=== PATIENT | female | born 1930 | race Caucasian/White ===

== ENCOUNTER 2018-06-08 12:53 | Inpatient (IN) ==
--- NOTE | 2018-06-08 13:41 | XR ---
EXAM DATE: 06/08/2018 1:33 PM EST AGE/SEX: 88 years / Female INDICATIONS: Short of breath, palpitations CLINICAL DATA: This is the patient's initial encounter. Patient reports that signs and symptoms have been present for 3 days and indicates a pain score of 0/10. MEDICAL/SURGICAL HISTORY: None. None. COMPARISON: No prior exams available for comparison. FINDINGS: The heart size is normal. There is mild prominence of interstitium at the bases. Focal alveolar conso lidation or atelectasis is not seen. No effusions are seen. CONCLUSION: Prominence in interstitium at the bases which could be secondary to some underlying interstitial dise ase. Electronically signed by: Luis Fernando Huffman MD Board Certified Radiologist 06/08/2018 1:40 PM EST
[2018-06-08 13:42] LABS: Baso # (Auto) 0.2 th/mm3 (0.0-0.2); Baso % (Auto) 2.6 % (0.0-2.0); Eos # (Auto) 0.1 th/mm3 (0.0-0.4); Eos % (Auto) 1.5 % (0.0-4.0); Hematocrit 45.8 % (35.0-46.0); Hemoglobin 14.7 gm/dL (11.6-15.3); Lymph # (Auto) 2.2 th/mm3 (1.0-4.8); Lymph % (Auto) 28.5 % (9.0-44.0); Mean Corpuscular Hemoglobin 31.4 pg (27.0-34.0); Mean Corpuscular Volume 98.2 fL (80.0-100.0); Mono # (Auto) 0.7 th/mm3 (0.0-0.9); Mono % (Auto) 9.5 % (0.0-8.0); Neut # (Auto) 4.4 th/mm3 (1.8-7.7); Neut % (Auto) 57.9 % (16.0-70.0); Platelet Count 287 th/mm3 (150-450); Red Blood Count 4.67 mil/mm3 (4.00-5.30); Red Cell Distribution Width 14.3 % (11.6-17.2); White Blood Count 7.6 th/mm3 (4.0-11.0)
--- NOTE | 2018-06-08 13:51 | ED ---
HPI General Chief complaint: Arrhythmia / Palpitations Stated complaint: Heart palpatations feeling SOB x3days Time Seen by Provider: 06/08/18 13:04 Source: patient and family Mode of arrival: ambulatory Limitations: no limitations History of Present Illness HPI narrative: Patient is an 88 year old female who comes in complaining of palpitations and chest pain. She says this has been going on for two days and she notices it mostly at night. Her daughter thinks she has been experiencing these symptoms for a longer period of time. She has also noticed that her mother has been short of breath on exertion, however, the patient denies this. Currently, she says she is asymptomatic. However, last night she was experiencing more palpitations and discomfort in the left side of her chest and into her neck. She denies any leg swelling or pain. She denies any recent travel. She says she has never had symptoms like this before. Severity is mild to moderate. Related Data Home Medications Medication Instructions Recorded Confirmed alendronate 70 mg PO QWEEK 06/08/18 06/08/18 anastrozole 1 mg PO DAILY 06/08/18 06/08/18 atorvastatin 40 mg PO DAILY 06/08/18 06/08/18 citalopram 20 mg PO DAILY 06/08/18 06/08/18 omeprazole 20 mg PO DAILY 06/08/18 06/08/18 timolol maleate 1 drp OPHTHALMIC (EYE) BID 06/08/18 06/08/18 tobramycin-dexamethasone 0.5 inch OPHTHALMIC (EYE) Q8H 06/08/18 06/08/18 Allergies Allergy/AdvReac Type Severity Reaction Status Date / Time ketoprofen Allergy Severe Intestinal Unverified 01/29/17 17:44 Bleeding naproxen Allergy Severe Intestinal Unverified 01/29/17 17:44 Bleeding ezetimibe Allergy Unknown unknown Unverified 06/08/18 13:02 pravastatin Allergy Unknown unknown Unverified 06/08/18 13:02 Review of Systems ROS: all other systems reviewed are negative Constitutional Denies chills and Denies fever(s) ENT Denies dizziness Cardiovascular Reports chest pain, Reports palpitations and Reports dyspnea on exertion Respiratory Denies cough Gastrointestinal Denies nausea and Denies vomiting Musculoskeletal Denies myalgias and Denies arthralgias Integumentary/Breasts Denies sores and Denies wounds Neurologic Denies focal weakness and Denies numbness PMFSH Medical History Medical History GERD (gastroesophageal reflux disease) (Acute) High cholesterol (Chronic) Glaucoma (Acute) History of breast cancer (Acute) History of radiation therapy (Acute) Surgical History Surgical History History of appendectomy (Acute) History of knee replacement (Acute) History of lumpectomy of left breast (Acute) History of tonsillectomy (Acute) Family History Family History Other Family history of acute myocardial infarction Social History Social History Substance History: No History of Abuse Second Hand Smoke Exposure: No Smoking Status: Never smoker How Often Do You Have a Drink Containing Alcohol: Never Recent Travel in [email or web address] within the Last 8 Weeks: No Recent Out of Country Travel within the Last 8 Weeks: No Immunization History Tetanus Immunization: Unsure Exam Narrative Exam Narrative: GENERAL: Awake and alert, in no acute distress. SKIN: Focused skin assessment warm/dry. HEAD: Atraumatic. Normocephalic. EYES: Pupils equal and round. No scleral icterus. No injection or drainage. ENT: No nasal bleeding or discharge. Mucous membranes pink and moist. NECK: Trachea midline. No JVD. CARDIOVASCULAR: Regular rate and rhythm. No murmur appreciated. RESPIRATORY: No accessory muscle use. Clear to auscultation. Breath sounds equal bilaterally. GASTROINTESTINAL: Abdomen soft, non-tender, nondistended. MUSCULOSKELETAL: No obvious deformities. No clubbing. No cyanosis. No edema. NEUROLOGICAL: Awake and alert. No obvious cranial nerve deficits. Motor grossly within normal limits. Normal speech. PSYCHIATRIC: Appropriate mood and affect; insight and judgment normal. Course Initial Documented Vital Signs Temperature 98.1 F 06/08/18 12:58 Pulse Rate 78 06/08/18 12:58 Respiratory Rate 16 06/08/18 12:58 Blood Pressure 165/77 H 06/08/18 12:58 Pulse Oximetry 98 06/08/18 12:58 Last Documented Vital Signs Temperature 98.1 F 06/08/18 12:58 Pulse Rate 79 06/08/18 17:25 Respiratory Rate 16 06/08/18 17:25 Blood Pressure 164/70 H 06/08/18 17:25 Pulse Oximetry 98 06/08/18 17:25 Medical Decision Making MDM Narrative Medical decision making narrative: Patient is an 88-year-old female who comes in chest discomfort and palpitations. Exam shows no acute abnormalities. IV established, labs sent. Labs concerning for an elevated troponin of 0.21, BNP is elevated. Patient given aspirin, started on heparin. CTA of the chest performed shows no evidence of PE. However there is vascular congestion and cardiomegaly. Patient given a dose of Lasix. Given nitro for her blood pressure. I spoke with Dr. Chavez of cardiology who would like the patient transferred to the main hospital. Agrees with the plan of heparin at this time. Patient admitted for further management. Medical Screen Exam Complete: Yes Emergency Medical Condition: Yes Differential Diagnosis Differential Diagnosis: PE versus NSTEMI versus STEMI versus CHF versus pneumonia versus electrolyte abnormality Medical Records Medical records reviewed: Yes I reviewed the patient's medical records. Lab Data Lab results reviewed: Yes I reviewed the patient's lab results. Result diagrams: 06/08/18 13:34 06/08/18 13:34 Lab Results 06/08/18 06/08/18 06/08/18 Range/Units 13:34 13:34 13:34 CBC w Diff Auto diff final WBC 7.6 (4.0-11.0) th/mm3 RBC 4.67 (4.00-5.30) mil/mm3 Hgb 14.7 (11.6-15.3) gm/dL Hct 45.8 (35.0-46.0) % MCV 98.2 (80.0-100.0) fL MCH 31.4 (27.0-34.0) pg MCHC 32.0 (32.0-36.0) % RDW 14.3 (11.6-17.2) % Plt Count 287 (150-450) th/mm3 MPV 9.0 (7.0-11.0) fL Neut % (Auto) 57.9 (16.0-70.0) % Lymph % (Auto) 28.5 (9.0-44.0) % [place] % (Auto) 9.5 H (0.0-8.0) % Eos % (Auto) 1.5 (0.0-4.0) % Baso % (Auto) 2.6 H (0.0-2.0) % Neut # (Auto) 4.4 (1.8-7.7) th/mm3 Lymph # (Auto) 2.2 (1.0-4.8) th/mm3 [place] # (Auto) 0.7 (0.0-0.9) th/mm3 Eos # (Auto) 0.1 (0.0-0.4) th/mm3 Baso # (Auto) 0.2 (0.0-0.2) th/mm3 WBC Differential . Differential Comment . PT 10.6 (9.8-11.6) sec INR 1.0 Ratio APTT 25.7 (23.4-31.7) sec Sodium 141 (136-145) meq/L Potassium 3.8 (3.5-5.1) meq/L Chloride 107 (98-107) meq/L Carbon Dioxide 26.5 (21.0-32.0) meq/L Anion Gap 8 (5-15) meq/L BUN 23 H (7-18) mg/dL Creatinine 0.72 (0.50-1.00) mg/dL Estimated GFR 77 L (>89) mL/min Random Glucose 100 (74-106) mg/dL Calcium 8.7 (8.5-10.1) mg/dL Magnesium (1.5-2.5) mg/dL Total Bilirubin 0.4 (0.2-1.0) mg/dL AST 23 (15-37) U/L ALT 23 (10-53) U/L Alkaline Phosphatase 83 (45-117) U/L Total Creatine Kinase 46 (26-192) U/L Troponin I 0.21 H (0.02-0.05) ng/mL B-Natriuretic Peptide (0-100) pg/mL Total Protein 7.2 (6.4-8.2) g/dL Albumin 3.3 L (3.4-5.0) g/dL TSH 0.991 (0.358-3.740) uIU/mL 06/08/18 06/08/18 Range/Units 13:34 16:32 CBC w Diff WBC (4.0-11.0) th/mm3 RBC (4.00-5.30) mil/mm3 Hgb (11.6-15.3) gm/dL Hct (35.0-46.0) % MCV (80.0-100.0) fL MCH (27.0-34.0) pg MCHC (32.0-36.0) % RDW (11.6-17.2) % Plt Count (150-450) th/mm3 MPV (7.0-11.0) fL Neut % (Auto) (16.0-70.0) % Lymph % (Auto) (9.0-44.0) % [place] % (Auto) (0.0-8.0) % Eos % (Auto) (0.0-4.0) % Baso % (Auto) (0.0-2.0) % Neut # (Auto) (1.8-7.7) th/mm3 Lymph # (Auto) (1.0-4.8) th/mm3 [place] # (Auto) (0.0-0.9) th/mm3 Eos # (Auto) (0.0-0.4) th/mm3 Baso # (Auto) (0.0-0.2) th/mm3 WBC Differential Differential Comment PT (9.8-11.6) sec INR Ratio APTT (23.4-31.7) sec Sodium (136-145) meq/L Potassium (3.5-5.1) meq/L Chloride (98-107) meq/L Carbon Dioxide (21.0-32.0) meq/L Anion Gap (5-15) meq/L BUN (7-18) mg/dL Creatinine (0.50-1.00) mg/dL Estimated GFR (>89) mL/min Random Glucose (74-106) mg/dL Calcium (8.5-10.1) mg/dL Magnesium 2.0 (1.5-2.5) mg/dL Total Bilirubin (0.2-1.0) mg/dL AST (15-37) U/L ALT (10-53) U/L Alkaline Phosphatase (45-117) U/L Total Creatine Kinase 44 (26-192) U/L Troponin I 0.27 H (0.02-0.05) ng/mL B-Natriuretic Peptide 518 H (0-100) pg/mL Total Protein (6.4-8.2) g/dL Albumin (3.4-5.0) g/dL TSH (0.358-3.740) uIU/mL Imaging Data Radiologist's impression: Chest CTA 06/08/18 13:12 CONCLUSION: 1. This study is negative for pulmonary embolism. 2. Scattered groundglass infiltrates are noted bilaterally consistent with atelectasis, mild infiltrates and/or mild pulmonary vascular congestion. Clinical correlation is recommended. 3. Cardiomegaly. Chest X-Ray 06/08/18 13:12 CONCLUSION: Prominence in interstitium at the bases which could be secondary to some underlying interstitial disease. ECG Data EKG Prior to Arrival: No Attestation: I personally reviewed and interpreted this ECG as follows: Interpretation: ECG shows NSR at a rate of 73, frequent PVCs, no ST elevation or depression Discharge Plan Discharge Disposition Patient Disposition: ED Admit(ED Internal Use Only) Discharge Condition Condition: Stable Discharge Order Discharge Orders: ED Use Only Admit Order (Routine); Ordered 06/08/18 Ordered By: Maria Ines Muñoz Discharge Details Diagnosis: Non-ST elevation SD (NSTEMI), CHF (congestive heart failure) Physicians Team ED Provider: Maria Ines Muñoz Primary Care Provider: Paco Corrales Attending Provider: Clyde Samuels Other Providers: Lupillo Gupta Status ED Status: Admitted Patient
[2018-06-08 14:00] LABS: Chloride 107 meq/L (98-107); Potassium 3.8 meq/L (3.5-5.1); Sodium 141 meq/L (136-145)
[2018-06-08 14:03] LABS: Albumin 3.3 g/dL (3.4-5.0); Anion Gap 8 meq/L (5-15); Calcium 8.7 mg/dL (8.5-10.1); Carbon Dioxide 26.5 meq/L (21.0-32.0); Glucose,Random 100 mg/dL (74-106)
[2018-06-08 14:04] LABS: Blood Urea Nitrogen 23 mg/dL (7-18)
[2018-06-08 14:05] LABS: Activated Partial Thrombo Time 25.7 sec (23.4-31.7); Prothrombin Time 10.6 sec (9.8-11.6)
[2018-06-08 14:07] LABS: Alanine Aminotransferase 23 U/L (10-53); Aspartate Aminotransferase 23 U/L (15-37); Glomerular Filtration Rate 77 mL/min (>89)
[2018-06-08 14:08] LABS: Total Protein 7.2 g/dL (6.4-8.2)
[2018-06-08 14:09] LABS: Alkaline Phosphatase 83 U/L (45-117)
[2018-06-08 14:12] LABS: Troponin I 0.21 ng/mL (0.02-0.05)
[2018-06-08 14:17] LABS: Thyroid Stimulating Hormone 0.991 uIU/mL (0.358-3.740)
[2018-06-08 14:41] LABS: Creatine Kinase 46 U/L (26-192)
--- NOTE | 2018-06-08 15:10 | CT ---
EXAM DATE: 06/08/2018 3:03 PM EST AGE/SEX: 88 years / Female INDICATIONS: Short of breath and heart palpitations. CLINICAL DATA: This is the patient's initial encounter. Patient reports that signs and symptoms have been present for 3 days and indicates a pain score of 0/10. MEDICAL/SURGICAL HISTORY: Gastroesophageal reflux disease. Hypercholesterolemia. Carcinoma, breas t. Appendectomy. Tonsillectomy. Left breast lumpectomy. Knee surgery. RADIATION DOSE: 13.27 CTDI (mGy) COMPARISON: No prior exams available for comparison. TECHNIQUE: Volumetric scanning was performed using a multi-row detector CT scanner during bolus infu suze of 65 ml Omnipaque 350 (iohexol) nonionic water-soluble contrast as a single exam dose. The fady a was post processed with a variety of visualization algorithms including full volume maximum intensi ty projection and sliding thin slab reformation. Using automated exposure control and adjustment of t he mA and/or kV according to patient size, radiation dose was kept as low as reasonably achievable to obtain optimal diagnostic quality images. DICOM format image data is available electronically for r eview and comparison. FINDINGS: Pulmonary Arteries: No filling defects are seen in the pulmonary arteries out to the subsegmental ve ssels. The left and right pulmonary arteries are normal in diameter. Lung: Scattered groundglass infiltrates are noted bilaterally consistent with atelectasis, mild infi ltrates and/or mild pulmonary vascular congestion. Clinical correlation is recommended. Effusion: None. Mediastinum: No evidence of mediastinal or hilar adenopathy. The heart is enlarged. Other: The axilla is unremarkable. CONCLUSION: 1. This study is negative for pulmonary embolism. 2. Scattered groundglass infiltrates are noted bilaterally consistent with atelectasis, mild infiltr ates and/or mild pulmonary vascular congestion. Clinical correlation is recommended. 3. Cardiomegaly. Electronically signed by: Kurt Vegas MD Board Certified Radiologist 06/08/2018 3:09 PM EST
[2018-06-08] MEDS ORDERED: Heparin 10,000 UNITS/10 ML Vial (for IV use) IV.PUSH STA (15:13)
[2018-06-08] MEDS ORDERED: Heparin Drip 25,000 UNIT/250 ML BAG IV.CONT PRN (15:13)
[2018-06-08] MEDS ORDERED: Acetaminophen 500 MG Tablet PO PRN (15:46)
[2018-06-08] MEDS ORDERED: Morphine Inj 4 MG/ML Vial IV.PUSH PRN (15:46)
[2018-06-08] MEDS: Aspirin 325 MG Tablet PO SCH (16:25)
--- NOTE | 2018-06-08 16:39 | P.HP ---
History of Present Illness Service: [facility] Adult med Primary Care Physician: Paco Corrales MD Chief Complaint: chest pressure, palpitations, fatigue History of Present Illness: Patient is an 88 year old female with hyperlipidemia and GERD as well as history of breast cancer who comes in complaining of palpitations and chest pain. She says this has been going on for two to 3 days and she notices it mostly at night. Her daughter thinks she has been experiencing these symptoms for a longer period of time. She has also noticed that her mother has been short of breath on exertion, however, the patient denies this and reports that the reason she cannot walk as far is because of knee surgery which she had at least 5 years ago. Currently, she says she is asymptomatic. However, last night she was experiencing more palpitations and discomfort in the left side of her chest and into her neck which lasted for several hours. She also had similar problems the night before. Daughter reports they have been trying to get her in to the [facility] but patient has been refusing until today. 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 She denies any leg swelling or pain. She denies any recent travel. She says she has never had symptoms like this before. Severity is mild to moderate. No fevers or chills. No hemoptysis. No productive cough. SH No tobacco, no alcohol for over 10 years Retired cardiac intensive care nurse Lives with her son, has a daughter in the area as well. - Diagnosis (1) Troponin I above reference range (2) GERD (gastroesophageal reflux disease) (3) High cholesterol Inpatient Certification: I certify that the inpatient services were ordered in accordance with Medicare regulations governing the order. This includes certification that hospital inpatient services are reasonable and necessary and in the case of services not specified as inpatient-only under 42 CFR 419.22(n), that they are appropriately provided as inpatient services in accordance to with the 2-midnight benchmark under 43 CFR 412.3(e) Estimated Total Length of Stay (Days): 3 Plans for Post Hospital Care: Not yet determined Review of Systems Constitutional: Reports fatigue, Denies anorexia, Denies body ache(s), Denies chills, Denies daytime sleepiness, Denies excessive sweating, Denies fever(s), Denies headache(s), Denies increased appetite, Denies lack of energy, Denies malaise, Denies night sweats, Denies weakness, Denies weight gain, Denies weight loss, Denies other Eyes: Denies blind spots, Denies blurry vision, Denies bulging eyes, Denies change in vision, Denies double vision, Denies discharge, Denies dry eyes, Denies floaters, Denies irritation, Denies itchy eyes, Denies loss of vision, Denies pain, Denies requires corrective lenses, Denies sensitivity to light, Denies other Ears, Nose, Mouth, and Throat: Reports abnormal hearing, Denies bleeding gums, Denies bad breath, Denies change in voice, Denies dental pain, Denies difficulty swallowing, Denies dizziness, Denies dry mouth, Denies ear discharge , Denies ear pain, Denies facial pain, Denies headache(s), Denies hearing loss, Denies hoarseness, Denies lip swelling, Denies nosebleed, Denies mouth lesions, Denies mouth pain, Denies nasal congestion, Denies nasal discharge, Denies nasal obstruction, Denies nasal trauma, Denies neck lump, Denies neck pain, Denies nose pain, Denies pain with swallowing, Denies poor balance, Denies post nasal drip, Denies ringing in the ears, Denies sinus pain, Denies sinus pressure , Denies sore throat, Denies throat swelling, Denies tongue swelling, Denies other Cardiovascular: Reports chest pain, Reports chest pain at rest, Reports chest pain with activity, Reports fast heart rate, Reports irregular heart rhythm, Reports shortness of breath with activity, Denies excessive sweating, Denies fainting, Denies foot swelling, Denies generalized swelling, Denies leg pain with activity, Denies leg sores, Denies leg swelling, Denies lightheadedness, Denies radiating jaw, neck or arm pain, Denies rapid, pounding, or irregular heartbeat, Denies shortness of breath, Denies shortness of breath when lying down, Denies shortness of breath causing sudden awakening, Denies slow heart rate, Denies other Respiratory: Reports shortness of breath with activity, Denies change in phlegm color, Denies chest congestion, Denies cough, Denies coughing up blood, Denies excessive phlegm production, Denies pain on inspiration, Denies pain with cough , Denies shortness of breath, Denies snoring, Denies stridor, Denies wheezing, Denies other Gastrointestinal: Denies abdominal pain, Denies belching, Denies black, tarry stools, Denies bloating, Denies bright, red blood in stools, Denies change in bowel habits, Denies constant urge to pass stool, Denies change in stools, Denies coffee ground vomit, Denies constipation, Denies cramping, Denies difficulty swallowing, Denies excessive passing of gas, Denies feeling full early, Denies heartburn, Denies incontinent of stools, Denies loose stools, Denies nausea, Denies pain with swallowing, Denies vomiting, Denies vomiting blood, Denies other Musculoskeletal: Reports joint pain Neurologic: Reports abnormal hearing, Denies abnormal movements, Denies abnormal speech, Denies abnormal walking, Denies behavioral changes, Denies burning sensations, Denies confusion, Denies dizziness, Denies fainting, Denies frequent falls, Denies headache(s), Denies lack of coordination, Denies localized weakness, Denies loss of vision, Denies memory loss, Denies numbness, Denies other visual disturbances, Denies radiating pain, Denies restless legs, Denies convulsions, Denies seizure-like activity, Denies sensory deficit, Denies tingling, Denies tingling/numbness/burning sensations, Denies tremor(s), Denies unsteadiness, Denies weakness, Denies other Psychiatric: Reports anxiety PMFSH - History History Provided By: Patient, Family Member - Medical History Medical History: Medical History (Last Updated 06/08/18 @ 16:34 by Marino Oates MD, PhD) GERD (gastroesophageal reflux disease) (Acute) High cholesterol (Acute) Glaucoma History of breast cancer History of radiation therapy - Surgical History Surgical History: Surgical History (Last Updated 06/08/18 @ 16:31 by Marino Oates MD, PhD) History of appendectomy History of knee replacement History of lumpectomy of left breast History of tonsillectomy - Family History Family History: Family History (Last Updated 06/08/18 @ 16:32 by Marino Oates MD, PhD) Other Family history of acute myocardial infarction - Social History I have reviewed the patient's Social History: Yes - Tobacco History Second Hand Smoke Exposure: No Tobacco Use In Past 30 Days: No Smoking Status: Never smoker - Alcohol History How Often Do You Have a Drink Containing Alcohol: Never - Substance Use History Substance History: No History of Abuse - Travel History Recent Travel in the [place] Within the Last 8 Weeks: No Recent Travel Out of the Country Within the Last 8 Weeks: No - Immunization History Tetanus Immunization: Unsure Medications and Allergies Active Medications: Active Medications Acetaminophen (Tylenol) 500 mg PO Q4H PRN PRN Reason: HEADACHE Anastrozole (Arimidex) 1 mg PO DAILY [facility] Aspirin (Aspirin) 325 mg PO DAILY [facility] Last Admin: 06/08/18 16:25 Dose: Not Given Atorvastatin Calcium (Lipitor) 40 mg PO DAILY [facility] Citalopram Hydrobromide (Celexa) 20 mg PO DAILY [facility] Heparin Sodium/Dextrose (Heparin/D5w 25,000 U/250 Ml) 25,000 unit in 250 mls @ 0 mls/hr IV.CONT TITRATE PRN; Protocol PRN Reason: Per Protocol Last Admin: 06/08/18 15:49 Dose: 800 units/hr, 8 mls/hr Morphine Sulfate (Morphine Inj) 2 mg IV.PUSH Q5M PRN PRN Reason: PAIN SCALE 6 TO 10 Nitroglycerin (Nitrostat Sl) 0.4 mg SL Q5M PRN PRN Reason: SYS BP GREATER THAN 170 MMHG Last Admin: 06/08/18 15:56 Dose: 0.4 mg Nitroglycerin (Nitrostat Sl) 0.4 mg SL Q5M PRN PRN Reason: ANGINA Pantoprazole Sodium (Protonix) 20 mg PO DAILY [facility] Sodium Chloride (Ns Flush) 2 ml IV.FLUSH UNSCH PRN PRN Reason: FLUSH AFTER USING IV ACCESS Sodium Chloride (Ns Flush) 2 ml IV.FLUSH BID [facility] Sodium Chloride (Ns Flush) 2 ml IV.FLUSH PRN PRN PRN Reason: FLUSH AFTER USING IV ACCESS Timolol Maleate (Timoptic 0.5% Drops) 1 drops EACH EYE BID [facility] Allergies Allergy/AdvReac Type Severity Reaction Status Date / Time ketoprofen Allergy Severe Intestinal Unverified 01/29/17 17:44 Bleeding naproxen Allergy Severe Intestinal Unverified 01/29/17 17:44 Bleeding ezetimibe Allergy Unknown unknown Unverified 06/08/18 13:02 pravastatin Allergy Unknown unknown Unverified 06/08/18 13:02 Home Medications Medication Instructions Recorded Confirmed Type alendronate 70 mg PO QWEEK 06/08/18 06/08/18 History anastrozole 1 mg PO DAILY 06/08/18 06/08/18 History atorvastatin 40 mg PO DAILY 06/08/18 06/08/18 History citalopram 20 mg PO DAILY 06/08/18 06/08/18 History omeprazole 20 mg PO DAILY 06/08/18 06/08/18 History timolol maleate 1 drp OPHTHALMIC (EYE) BID 06/08/18 06/08/18 History tobramycin-dexamethasone 0.5 inch OPHTHALMIC (EYE) Q8H 06/08/18 06/08/18 History Exam Vital signs: Vital Signs 06/08/18 12:58 06/08/18 13:12 06/08/18 14:42 Temperature 98.1 F Pulse Rate 78 82 Respiratory Rate 16 16 Blood Pressure 165/77 H 198/94 H Pulse Oximetry 98 84 L 98 06/08/18 16:00 06/08/18 16:02 Temperature Pulse Rate 100 H Respiratory Rate 16 Blood Pressure 187/86 H 133/74 Pulse Oximetry 95 Intake & Output 06/07/18 06/08/18 06/08/18 18:59 06:59 18:59 Weight 63.5 kg Narrative: GENERAL: NAD, a/o, pleasant, cooperative. SKIN: Warm and dry. HEAD: Atraumatic. Normocephalic. EYES: Pupils equal and round. No scleral icterus. No injection or drainage. ENT: No nasal bleeding or discharge. Mucous membranes pink and moist. NECK: Trachea midline. No JVD. No bruit. CARDIOVASCULAR: irreg with occasional extra systole and some variation of S1 intensity, no significant murmur, no rub RESPIRATORY: No accessory muscle use. Clear to auscultation. Breath sounds equal bilaterally. GASTROINTESTINAL: Abdomen soft, non-tender, nondistended. Hepatic and splenic margins not palpable. BS wnl. MUSCULOSKELETAL: Extremities without clubbing, cyanosis, or edema. No obvious deformities. NEUROLOGICAL: Awake and alert. No obvious cranial nerve deficits. Motor grossly within normal limits. Five out of 5 muscle strength in the arms and legs. Normal speech. PSYCHIATRIC: Appropriate mood and affect; insight and judgment normal. Results - Labs CBC & Chem 7: 06/08/18 13:34 06/08/18 13:34 Labs: Laboratory Results - last 24 hr 06/08/18 06/08/18 06/08/18 13:34 13:34 13:34 CBC w Diff Auto diff final WBC 7.6 RBC 4.67 Hgb 14.7 Hct 45.8 MCV 98.2 MCH 31.4 MCHC 32.0 RDW 14.3 Plt Count 287 MPV 9.0 Neut % (Auto) 57.9 Lymph % (Auto) 28.5 [place] % (Auto) 9.5 H Eos % (Auto) 1.5 Baso % (Auto) 2.6 H Neut # (Auto) 4.4 Lymph # (Auto) 2.2 [place] # (Auto) 0.7 Eos # (Auto) 0.1 Baso # (Auto) 0.2 WBC Differential . Differential Comment . PT 10.6 INR 1.0 APTT 25.7 Sodium 141 Potassium 3.8 Chloride 107 Carbon Dioxide 26.5 Anion Gap 8 BUN 23 H Creatinine 0.72 Estimated GFR 77 L Random Glucose 100 Calcium 8.7 Total Bilirubin 0.4 AST 23 ALT 23 Alkaline Phosphatase 83 Total Creatine Kinase 46 Troponin I 0.21 H B-Natriuretic Peptide Total Protein 7.2 Albumin 3.3 L TSH 0.991 06/08/18 13:34 CBC w Diff WBC RBC Hgb Hct MCV MCH MCHC RDW Plt Count MPV Neut % (Auto) Lymph % (Auto) [place] % (Auto) Eos % (Auto) Baso % (Auto) Neut # (Auto) Lymph # (Auto) [place] # (Auto) Eos # (Auto) Baso # (Auto) WBC Differential Differential Comment PT INR APTT Sodium Potassium Chloride Carbon Dioxide Anion Gap BUN Creatinine Estimated GFR Random Glucose Calcium Total Bilirubin AST ALT Alkaline Phosphatase Total Creatine Kinase Troponin I B-Natriuretic Peptide 518 H Total Protein Albumin TSH - Imaging Impressions Chest CTA 06/08/18 13:12 CONCLUSION: 1. This study is negative for pulmonary embolism. 2. Scattered groundglass infiltrates are noted bilaterally consistent with atelectasis, mild infiltrates and/or mild pulmonary vascular congestion. Clinical correlation is recommended. 3. Cardiomegaly. Chest X-Ray 06/08/18 13:12 CONCLUSION: Prominence in interstitium at the bases which could be secondary to some underlying interstitial disease. Caprini VTE Risk Assessment Caprini VTE Risk Assessment: Moderate/High Risk (score >= 2) Caprini Risk Assessment Model: Point Value = 1 Point Value = 2 Point Value = 3 Point Value = 5 Age 41-60 Minor surgery BMI > 25 kg/m2 Swollen legs Varicose veins or History of unexplained or recurrent spontaneous Oral contraceptives or hormone replacement Sepsis (< 1 month) Serious lung disease, including pneumonia (< 1 month) Abnormal pulmonary function Acute myocardial infarction Congestive heart failure (< 1 month) History of inflammatory bowel disease Medical patient at bed rest Age 61-74 Arthroscopic surgery Major open surgery (> 45 min) Laparoscopic surgery (> 45 min) Malignancy Confined to bed (> 72 hours) Immobilizing plaster cast Central venous access Age >= 75 History of VTE Family history of VTE Factor V Leiden Prothrombin [id number] Lupus anticoagulant Anticardiolipin antibodies Elevated serum homocysteine Heparin-induced thrombocytopenia Other congenital or acquired thrombophilia Stroke (< 1 month) Elective arthroplasty Hip, pelvis, or leg fracture Acute spinal cord injury (< 1 month) Prophylaxis Regimen: Total Risk Factor Score Risk Level Prophylaxis Regimen 0-1 Low Early ambulation 2 Moderate Order ONE of the following: *Sequential Compression Device (SCD) *Heparin 5000 units SQ BID 3-4 Higher Order ONE of the following medications: *Heparin 5000 units SQ TID *Enoxaparin/Lovenox 40 mg SQ daily (WT < 150 kg, CrCl > 30 mL/min) *Enoxaparin/Lovenox 30 mg SQ daily (WT < 150 kg, CrCl > 10-29 mL/min) *Enoxaparin/Lovenox 30 mg SQ BID (WT < 150 kg, CrCl > 30 mL/min) AND/OR *Sequential Compression Device (SCD) 5 or more Highest Order ONE of the following medications: *Heparin 5000 units SQ TID (Preferred with Epidurals) *Enoxaparin/Lovenox 40 mg SQ daily (WT < 150 kg, CrCl > 30 mL/min) *Enoxaparin/Lovenox 30 mg SQ daily (WT < 150 kg, CrCl > 10-29 mL/min) *Enoxaparin/Lovenox 30 mg SQ BID (WT < 150 kg, CrCl > 30 mL/min) AND *Sequential Compression Device (SCD) Assessment and Plan - Assessment (1) Troponin I above reference range Code(s): R74.8 - Abnormal levels of other serum enzymes Status: Acute Plan: Possible NSTEMI. No evidence of acute injury on EKG but PVCs noted. Will have cardiology see pt. She has been placed on heparin ggt and will be transferred to the main trent at the request of Dr. Cahvez who discussed the case with the ER provider. Dr. Samuels will be the attending and he is aware of the patient. (2) GERD (gastroesophageal reflux disease) Code(s): K21.9 - Gastro-esophageal reflux disease without esophagitis Status: Acute Plan: Continue PPI. (3) High cholesterol Code(s): E78.00 - Pure hypercholesterolemia, unspecified Status: Chronic Plan: Continue medication. Check labs. - Plan Code Status: full Discussed Condition With: Pt, ER provider and pt's daughter at bedside
[2018-06-08 17:03] LABS: Troponin I 0.27 ng/mL (0.02-0.05)
--- NOTE | 2018-06-08 20:48 | P.CONCA ---
History of Present Illness Service: Cardiology Consult date: 06/08/18 Requesting Physician: Marino Oates Reason for Consult: NSTEMI Primary Care Provider: Paco Corrales MD Chief Complaint: chest pressure, palpitations, fatigue History of Present Illness: Patient is an 88 year old lady, presented emergency room today because of progressive worsening shortness of breath and chest discomfort. Patient has been active until a few months ago, after her knee surgery, she become less active. About few days ago, patient noticed substernal chest discomfort which she described as not able to get oxygen most occur at nighttime, better when she sits up. Her daughter at bedside provide additional information. Her daughter indicated patient had has similar symptoms for the last couple months. Last night, patient no discharge symptoms have worsened and discomfort of the chest also radiated to her neck and left arm. For that reason she decided come to the emergency room for evaluation. She denies any leg swelling or pain. She denies any recent travel. She says she has never had symptoms like this before. Workup in emergency room found elevated troponin, 0.21. EKG showed normal sinus rhythm with frequent PVCs. No acute ischemic changes. CTA of the chest showed no evidence of pulmonary embolism. Finding consistent with bilateral infiltrates. 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 never smokes family history 2 brothers had history of myocardial infarction at age of 40-50. sister had multiple recurrent stroke. Review of Systems All other systems reviewed negative except as stated in HPI PMFSH - History History Provided By: Patient, Family Member - Medical History Medical History: Medical History (Last Updated 06/08/18 @ 16:34 by Marino Oates MD, PhD) GERD (gastroesophageal reflux disease) (Acute) High cholesterol (Chronic) Glaucoma History of breast cancer History of radiation therapy - Surgical History Surgical History: Surgical History (Last Updated 06/08/18 @ 16:31 by Marino Oates MD, PhD) History of appendectomy History of knee replacement History of lumpectomy of left breast History of tonsillectomy - Family History Family History: Family History (Last Updated 06/08/18 @ 16:32 by Marino Oates MD, PhD) Other Family history of acute myocardial infarction - Tobacco History Second Hand Smoke Exposure: No Tobacco Use In Past 30 Days: No Smoking Status: Never smoker - Alcohol History How Often Do You Have a Drink Containing Alcohol: Never - Substance Use History Substance History: No History of Abuse - Travel History Recent Travel in the [place] Within the Last 8 Weeks: No Recent Travel Out of the Country Within the Last 8 Weeks: No - Immunization History Tetanus Immunization: Unsure Medications and Allergies Active Medications: Active Medications Acetaminophen (Tylenol) 500 mg PO Q4H PRN PRN Reason: HEADACHE Anastrozole (Arimidex) 1 mg PO DAILY COUNT INCLUDES THE [facility] Aspirin (Aspirin) 325 mg PO DAILY COUNT INCLUDES THE [facility] Last Admin: 06/08/18 16:25 Dose: Not Given Atorvastatin Calcium (Lipitor) 40 mg PO DAILY COUNT INCLUDES THE [facility] Citalopram Hydrobromide (Celexa) 20 mg PO DAILY COUNT INCLUDES THE [facility] Heparin Sodium/Dextrose (Heparin/D5w 25,000 U/250 Ml) 25,000 unit in 250 mls @ 0 mls/hr IV.CONT TITRATE PRN; Protocol PRN Reason: Per Protocol Last Admin: 06/08/18 15:49 Dose: 800 units/hr, 8 mls/hr Morphine Sulfate (Morphine Inj) 2 mg IV.PUSH Q5M PRN PRN Reason: PAIN SCALE 6 TO 10 Nitroglycerin (Nitrostat Sl) 0.4 mg SL Q5M PRN PRN Reason: SYS BP GREATER THAN 170 MMHG Last Admin: 06/08/18 15:56 Dose: 0.4 mg Nitroglycerin (Nitrostat Sl) 0.4 mg SL Q5M PRN PRN Reason: ANGINA Pantoprazole Sodium (Protonix) 20 mg PO DAILY COUNT INCLUDES THE [facility] Sodium Chloride (Ns Flush) 2 ml IV.FLUSH UNSCH PRN PRN Reason: FLUSH AFTER USING IV ACCESS Sodium Chloride (Ns Flush) 2 ml IV.FLUSH BID COUNT INCLUDES THE [facility] Sodium Chloride (Ns Flush) 2 ml IV.FLUSH PRN PRN PRN Reason: FLUSH AFTER USING IV ACCESS Temazepam (Restoril) 15 mg PO HS ONE Stop: 06/08/18 21:01 Timolol Maleate (Timoptic 0.5% Drops) 1 drops EACH EYE BID COUNT INCLUDES THE [facility] Allergies Allergy/AdvReac Type Severity Reaction Status Date / Time ketoprofen Allergy Severe Intestinal Unverified 01/29/17 17:44 Bleeding naproxen Allergy Severe Intestinal Unverified 01/29/17 17:44 Bleeding ezetimibe Allergy Unknown unknown Unverified 06/08/18 13:02 pravastatin Allergy Unknown unknown Unverified 06/08/18 13:02 Home Medications Medication Instructions Recorded Confirmed Type alendronate 70 mg PO QWEEK 06/08/18 06/08/18 History anastrozole 1 mg PO DAILY 06/08/18 06/08/18 History atorvastatin 40 mg PO DAILY 06/08/18 06/08/18 History citalopram 20 mg PO DAILY 06/08/18 06/08/18 History omeprazole 20 mg PO DAILY 06/08/18 06/08/18 History timolol maleate 1 drp OPHTHALMIC (EYE) BID 06/08/18 06/08/18 History tobramycin-dexamethasone 0.5 inch OPHTHALMIC (EYE) Q8H 06/08/18 06/08/18 History Exam Vital signs: Vital Signs 06/08/18 12:58 06/08/18 13:12 06/08/18 14:42 Temperature 98.1 F Pulse Rate 78 82 Respiratory Rate 16 16 Blood Pressure 165/77 H 198/94 H Pulse Oximetry 98 84 L 98 06/08/18 16:00 06/08/18 16:02 06/08/18 17:25 Temperature Pulse Rate 100 H 79 Respiratory Rate 16 16 Blood Pressure 187/86 H 133/74 164/70 H Pulse Oximetry 95 98 Intake & Output 06/08/18 06/08/18 06/09/18 06:59 18:59 06:59 Weight 63.5 kg - Constitutional no acute distress - Routine HEENT Exam Head: Present: normocephalic, atraumatic Eye: Present: EOMI, PERRL - Routine Neck Exam Present: supple, full ROM. Absent: JVD, carotid bruit - Routine Respiratory Exam Present: rales ( Bilateral basal rales) - Routine Cardiovascular Exam Present: RRR, S1, S2, murmur (apical 2/6 systolic) - Routine Abdominal Exam Present: soft, normoactive bowel sounds - Routine Skin Exam Present: intact, dry, warm. Absent: erythema - Routine Neurological Exam Present: alert, oriented X3, CN II-XII intact Results 06/08/18 13:34 06/08/18 13:34 Cardiac Enzymes 06/08/18 06/08/18 06/08/18 Range/Units 13:34 13:34 16:32 AST 23 (15-37) U/L Troponin I 0.21 H 0.27 H (0.02-0.05) ng/mL B-Natriuretic Peptide 518 H (0-100) pg/mL Coagulation 18 06/08/18 Range/Units 13:34 13:34 PT 10.6 (9.8-11.6) sec APTT 25.7 (23.4-31.7) sec B-Natriuretic Peptide 518 H (0-100) pg/mL CBC 06/08/18 Range/Units 13:34 WBC 7.6 (4.0-11.0) th/mm3 RBC 4.67 (4.00-5.30) mil/mm3 Hgb 14.7 (11.6-15.3) gm/dL Hct 45.8 (35.0-46.0) % Plt Count 287 (150-450) th/mm3 Neut # (Auto) 4.4 (1.8-7.7) th/mm3 Lymph # (Auto) 2.2 (1.0-4.8) th/mm3 [place] # (Auto) 0.7 (0.0-0.9) th/mm3 Eos # (Auto) 0.1 (0.0-0.4) th/mm3 Baso # (Auto) 0.2 (0.0-0.2) th/mm3 Comprehensive Metabolic Panel 06/08/18 Range/Units 13:34 Sodium 141 (136-145) meq/L Potassium 3.8 (3.5-5.1) meq/L Chloride 107 (98-107) meq/L Carbon Dioxide 26.5 (21.0-32.0) meq/L BUN 23 H (7-18) mg/dL Creatinine 0.72 (0.50-1.00) mg/dL Calcium 8.7 (8.5-10.1) mg/dL AST 23 (15-37) U/L ALT 23 (10-53) U/L Alkaline Phosphatase 83 (45-117) U/L Total Protein 7.2 (6.4-8.2) g/dL Albumin 3.3 L (3.4-5.0) g/dL Intake and Output 06/08/18 06/08/18 06/08/18 06:59 14:59 22:59 Other: Weight 63.5 kg Patient Weight 06/09/18 06:59 Weight 63.5 kg - Imaging and Cardiology Imaging: Impressions Chest CTA 06/08/18 13:12 CONCLUSION: 1. This study is negative for pulmonary embolism. 2. Scattered groundglass infiltrates are noted bilaterally consistent with atelectasis, mild infiltrates and/or mild pulmonary vascular congestion. Clinical correlation is recommended. 3. Cardiomegaly. Chest X-Ray 06/08/18 13:12 CONCLUSION: Prominence in interstitium at the bases which could be secondary to some underlying interstitial disease. Assessment and Plan - Assessment (1) Non-ST elevation IN (NSTEMI) Code(s): I21.4 - Non-ST elevation (NSTEMI) myocardial infarction Status: Acute (2) CHF (congestive heart failure) Code(s): I50.9 - Heart failure, unspecified Status: Acute (3) GERD (gastroesophageal reflux disease) Code(s): K21.9 - Gastro-esophageal reflux disease without esophagitis Status: Acute (4) High cholesterol Code(s): E78.00 - Pure hypercholesterolemia, unspecified Status: Chronic - Plan 88 years old lady, with new onset CHF, and non STEMI 1. non STEMI currently, patient is symptom free. Continue, Aspirin, atorvastatin, intravenous heparin per ACS protocol. will also add [id number]. Tentative, schedule coronary angiogram possible intervention tomorrow 9:00 a.m.. Patient will be transferred to [facility] 2. new onset CHF. Echo ordered. 3. Dyslipidemia. Continue atorvastatin. (2) CHF (congestive heart failure) Qualifiers: Heart failure type: unspecified Heart failure chronicity: acute Qualified Code(s): I50.9 - Heart failure, unspecified
[2018-06-08] MEDS ORDERED: Temazepam 15 MG Capsule PO ONE (21:00)
[2018-06-08] MEDS ORDERED: Metoprolol Tartrate 25 MG Tablet PO ONE (22:30)
[2018-06-08] MEDS: Timolol 0.5% Drops 5 ML Bottle EACH EYE SCH (22:31)
[2018-06-09 03:06] LABS: Calcium 8.4 mg/dL (8.5-10.1); Carbon Dioxide 29.6 meq/L (21.0-32.0); Potassium 3.5 meq/L (3.5-5.1)
[2018-06-09 03:09] LABS: Chol/HDL Ratio 3.44 Ratio; HDL Cholesterol 63.2 mg/dL (40.0-60.0)
[2018-06-09 03:12] LABS: Baso % (Auto) 0.4 % (0.0-2.0); Eos # (Auto) 0.2 th/mm3 (0.0-0.4); Eos % (Auto) 2.2 % (0.0-4.0); Hematocrit 39.4 % (35.0-46.0); Hemoglobin 13.7 gm/dL (11.6-15.3); Lymph # (Auto) 2.2 th/mm3 (1.0-4.8); Lymph % (Auto) 29.1 % (9.0-44.0); Mean Corpuscular HGB Conc 34.8 % (32.0-36.0); Mean Corpuscular Hemoglobin 33.5 pg (27.0-34.0); Mean Corpuscular Volume 96.3 fL (80.0-100.0); Mean Platelet Volume 8.8 fL (7.0-11.0); Mono # (Auto) 0.7 th/mm3 (0.0-0.9); Mono % (Auto) 9.8 % (0.0-8.0); Neut # (Auto) 4.4 th/mm3 (1.8-7.7); Neut % (Auto) 58.5 % (16.0-70.0); Platelet Count 240 th/mm3 (150-450); Red Blood Count 4.09 mil/mm3 (4.00-5.30); Red Cell Distribution Width 14.1 % (11.6-17.2); White Blood Count 7.4 th/mm3 (4.0-11.0)
[2018-06-09] MEDS ORDERED: Heparin 10,000 UNITS/10 ML Vial (for IV use) IV.PUSH PRN ×2 (04:50)
[2018-06-09] MEDS ORDERED: Heparin/NS PF Inj 1,000 ML ONE (08:31)
[2018-06-09] MEDS ORDERED: Heparin 10,000 UNITS/10 ML Vial (for IV use) ONE (08:32)
[2018-06-09] MEDS: Aspirin 325 MG Tablet PO SCH (08:32)
[2018-06-09] MEDS ORDERED: fentaNYL Citrate Inj 100 MCG/2 ML Ampul ONE (08:32)
[2018-06-09] MEDS: Pantoprazole Sodium 20 MG DR Tablet PO SCH (08:32)
[2018-06-09] MEDS: Metoprolol Tartrate 25 MG Tablet PO SCH ×2 (08:33→21:44)
[2018-06-09] MEDS: Citalopram 20 MG Tablet PO SCH (08:33)
[2018-06-09] MEDS: Anastrozole 1 MG Tablet PO SCH (08:33)
--- NOTE | 2018-06-09 08:33 | P.PNIM ---
Subjective Interval history: not sob overnight. marcos cp Physical Exam Vital signs: Last Vital Signs Temp 97.7 F 06/08/18 23:00 Pulse 58 L 06/09/18 06:00 Resp 18 06/09/18 03:00 BP 158/65 H 06/09/18 03:00 Pulse Ox 98 06/09/18 03:00 Narrative: nad heart reg lung cta abd s/nt ext no edema Results Labs CBC & Chem 7: 06/09/18 02:40 06/09/18 02:40 Assessment and Plan Assessment (1) Non-ST elevation MA (NSTEMI): Code(s): I21.4 - Non-ST elevation (NSTEMI) myocardial infarction Status: Acute (2) GERD (gastroesophageal reflux disease): Code(s): K21.9 - Gastro-esophageal reflux disease without esophagitis Status: Acute (3) High cholesterol: Code(s): E78.00 - Pure hypercholesterolemia, unspecified Status: Chronic Plan ntemi Pt admitted from [facility] with cp/sob and concern for nstemi She is on asa/statin/bb heparin gtt per protocol [facility] pla[facility]ED TODAY dispo after [facility] Progress Note: Quality VTE Deep Vein Thrombosis/Pulmonary Embolism Present on Admission: No _ (1) GERD (gastroesophageal reflux disease) Qualifiers: Esophagitis presence:
[2018-06-09] MEDS ORDERED: Iohexol 350 MG/ML 100 ML Vial (for Cath Lab) IVCONTRAST ONE (09:30)
--- NOTE | 2018-06-09 10:10 | CATHPROC ---
Room 8 Studio HIS Report Study Information Study Number Admission Scheduled Start Study Start [id number] Jun 08 2018 3:45PM 06/09/2018 Jun 09 2018 8:50AM [place] [facility] Cardiac Catheterization Admit Source Facility Department Emergency department [facility] Physician and Clinical Staff Initial Wing Edel Espinosa Director Skills Floridalma Montilla,ALEXUS Recorder Sommer Cerda,RT(R) Scrub Shen ColemanRT(R) Procedures Performed Procedure Location (Site) Vessel Name Coronary Angiograms LCA Left Coronary Drug Eluting Inflatio Radial (right) Radial Art. L Heart Cath PTCA LAD Prox Left Coronary PTCA ADD ON'S Wire insertion Radial (right) Radial Art. Equipment Time Pie Chef Description Size Mfg Part Number Used/Scraped COPILOT VALVE, BLEEDBACK [id number] 09:37 [employer] Used CONTROL *[id number] 09:34 [employer] WIRE, ASAHI PROWATER 180CM 180CM Used *[id number] WIRE, WHISPER W/HYDROCOAT [id number] 09:34 [employer] 190CM Used 190CM *[id number] TRANSDUCER, TRUWAVE [id number] 09:04 PRADHAN MCNEIL * Used W/STOCKCOCK *[id number] SDN-21-2.5 10:07 [employer] NEEDLE, PERCUTANEOUS ENTRY 21G X 2.5CM Used *[id number] *[id number] *[id number] 09:04 MALLINCKRODT SYRINGE, ANGIOMAT 150ML 150ML *[id number] Used 2SUB [id number] 09:04 [employer] BLANKET,WARM AIR CCL * Used *[id number] 09:04 [employer] PACK, CCL CUSTOM * Used *[id number] 09:04 [employer] SUPPORT, ARTERIAL ADULT 28964 *[id number] Used [id number] 09:04 [employer] PACER PEN, SKIN DUAL W/ RULER * Used *[id number] BALLOON, 2.75 X 15MM NC [id number] 09:50 [employer] 15MM Used EUPHORA *[id number] 09:49 [employer] STENT, 2.75 30MM FRED 2.75 30MM [id number] Used [id number] 09:38 [employer] MEDICAL 30 MARGARITA INDEFLATOR Used *[id number] BAND, RADIAL COMPRESSION TR [id number] 09:55 [employer] 24CM Used SHORT 24 *[id number] 09:04 [employer] WIRE, EXCHANGE 260CM 3MMJ 260CM Used *[id number] 09:04 NAMIC MANIFOLD, 4 PORT * Used *[id number] 09:04 [employer] OMNIPAQUE, 350 MG, 150ML 150ML [id number] Used 09:38 [employer] OMNIPAQUE, 350 MG, 150ML 150ML [id number] Used 09:04 [employer] JELCO NEEDLE 4056 *[id number] Used CATHETER, FR5 OPTITORQUE [id number] 09:17 [employer] FR 5 Used RADIAL TIG 4.0 *[id number] SHEATH, FR6 TRANSRADIAL [id number] 09:04 [employer] FR 6 Used SLENDER 10CM *[id number] Equipment Model, Serial, Lot Number and Expiration Data Description Model Number Serial Number Lot Number Expiration Date BALLOON, 2.75 X 15MM NC [id number] 11-18-2019 EUPHORA STENT, 2.75 30MM FRED [id number] 07-22-2019 History: Current Medications Medication Dosage/Unit Route Frequency Last Date/Time Taken ASA LIPITOR NTG SL Prilosec History: Allergies Allergy Reaction naproxen Intestinal Bleeding ketoprofen Intestinal Bleeding pravastatin unknown ezetimibe unknown History: Risk Factors Family History of Hypertension Dyslipidemia Previous ND Previous Heart Failure Premature CAD Yes Yes Yes No No Prior Valve Prior PCI Prior CABG Surgery No No No Cerebrovascular Peripheral Artery Chronic Lung On Dialysis Diabetes Disease Disease Disease No No No No No History: Symptoms/Diagnosis Selection Items Chest pain SOB History: Stress Tests Stress or Imaging Studies Performed No History: Other Disease Selection Items Cancer Gerd History: Other Current Smoker No Labs Hgb (g/dl) Hct (%) RBC (MIL/MM3) WBC (l/cumm) Platelets (thousands) 11.60-17.00 35.00-51.00 4.00-5.90 4.00-11.00 150.00-450.00 14.7 45.8 4.6 7.6 287 Glucose (mg/dl) BUN (mg/dl) Creatinine (mg/dl) BUN:Creatinine (1:x) 74.00-106.00 7.00-18.00 0.50-1.30 10.00-20.00 100 23 0.7 32.9 Na (meq/l) K (meq/l) Cl (meq/l) CO2 (mmol/L) Ca (mg/dl) 136.00-145.00 3.50-5.10 98.00-107.00 21.00-32.00 8.50-10.10 141 3.8 107 26.5 8.7 PT (sec) PTT (sec) INR (PTT:PT) 9.80-11.60 24.30-30.10 0.90-1.10 10.6 25.7 1 Troponin I (ng/ml) CPK (u/l) CPK-MB (ng/ML) 0.02-0.05 26.00-308.00 0.50-3.60 0.21 46 Not Drawn Medication Medication Total Dose (Bolus/Oral) Medication Total Dosage/Unit 1% XYLOCAINE 20 mL ANGIOMAX BOLUS 10 mL BRILLINTA 180 mg FENTANYL 50 mcg RADIAL COCKTAIL 5 mL (Bolus) VERSED 2 mg Medications (Bolus/Oral) Medication Time Given Dosage/Unit Administered By Reason VERSED 06/09/2018 9:17:24 AM 2 mg Floridalma Montilla 2 mg VERSED given in lab by Floridalma Montilla, ALEXUS via Peripheral IV. FENTANYL 06/09/2018 9:18:29 AM 50 mcg Floridalma Montilla 50 mcg FENTANYL given in lab by Floridalma Montilla, ALEXUS via Peripheral IV. 1% XYLOCAINE 06/09/2018 9:19:00 AM 20 mL Wing Edel Chavez 20 mL 1% XYLOCAINE given in lab by Wing Edel Chavez in Right Radial via Subcutaneous. Ntg 200mcg Verapamil 2.5mg Heparin RADIAL COCKTAIL 06/09/2018 9:25:50 AM 5 mL (Bolus) Wing Edel Chavez 2500U 5 mL (Bolus) RADIAL COCKTAIL given in lab by Wing Edel Chavez via Radial. Using [Solution Name]. Reason: Ntg 200mcg Verapamil 2.5mg Heparin 2500U. ANGIOMAX BOLUS 06/09/2018 9:38:44 AM 10 mL Floridalma Montilla 10 mL ANGIOMAX BOLUS given in lab by Floridalma Montilla, ALEXUS via Peripheral IV. Ordered by Wing Edel Chavez. 06/09/2018 10:03:19 BRILLINTA 180 mg Floridalma Montilla AM 180 mg BRILLINTA given in lab by Floridalma Montilla, RN in Per mouth via Oral. Ordered by Wing Edel Chavez. Medication (Drip) Medication Time Given Dosage/Unit Concentration/Unit Diluent (ml) Solution ANGIOMAX DRIP 06/09/2018 9:40:15 AM 1.772 mg/kg/hr 250 mg 50 NaCl .9 1.772 mg/kg/hr ANGIOMAX DRIP given in lab by Floridalma Montilla, ALEXUS via Peripheral IV. Pump/Drip Flow = 22.5 ml/hr using NaCl .9 with a concentration of 250 mg in 50 ml. IV Solutions 06/09/2018 8:50:58 AM 0 mL (IV) 500 NaCl .9 IV Solutions given in lab by Floridalma Montilla RN in Right Antecubital via Peripheral IV. Pump/Drip Fl ow = 20 ml/hr using NaCl .9. Initial Case Assessment Cardiovascular HR Rhythm NIBP Chest Pain 68 Sinus 182/74 0 Edema Present Skin color Skin None Normal Warm Dry Circulatory - Right Pulses Dorsalis Pedis Femoral Radial 2 2 2 Scale (0,1,2,3,4,d) Circulatory - Left Pulses Dorsalis Pedis Femoral Radial 2 2 Scale (0,1,2,3,4,d) Neurological State Oriented to time-place- Alert Moves all extremities person Respiration - General Respiration Rate SpO2 (%) O2 (lpm) (B/min) 17 98 2 Final Case Assessment Cardiovascular HR Rhythm NIBP Chest Pain 68 Sinus 156/70 0 Edema Present Skin color Skin None Normal Warm Dry Circulatory - Right Pulses Dorsalis Pedis Femoral Radial 2 2 2 Scale (0,1,2,3,4,d) Circulatory - Left Pulses Dorsalis Pedis Femoral Radial 2 2 Scale (0,1,2,3,4,d) Neurological State Oriented to time-place- Alert Moves all extremities person Respiration - General Respiration Rate SpO2 (%) O2 (lpm) (B/min) 17 98 2 Chronological Log Time Study Chronological Log 8:45:25 Patient arrived via Bed. 8:50:33 Patient Name, D.O.B, / Armband Verified By R.N. 8:50:33 Consent signed by the physician and the patient and verified by the [facility] staff. 8:50:34 Pre-op and post- op instructions given; patient acknowledges understanding of instructions. 8:50:35 Verbal Stimulation=2 Physical Stimulation=2 Airway=2 Respiration=2 TOTAL=8. (0=absent, 1=li mited, 2=present) 8:50:36 Presedation assessment performed by [facility] RN. 8:50:41 Allens test performed on the right radial and ulnar artery. 8:50:45 Patient has been NPO for More than 6Hrs. 8:50:46 Skin Breakdown- none per patient. 8:50:48 Patient Warmer Placed on the Table. 8:50:50 Rox Prominences Protected 8:50:51 A # 20 IV was noted in the Antecubital (right). Grade = 0 IV Solutions given in lab by Floridalma Montilla, RN in Right Antecubital via Peripheral IV. Pump/D rip Flow = 20 ml/hr 8:50:58 using NaCl .9. 8:51:00 History and physical on the chart or being dictated. Assessment: Initial Case, HR=68 BPM, Rhythm=Sinus, KCIZ=862/74 mmhg, Chest Pain=0, Edema=None, Color=Normal, Skin = Warm, Dry Right Pulses: Wesley Ped=2, Femoral=2, Radial=2 8:51:03 Left Pulses: Wesley Ped=2, Femoral=2 Neurological: State=Alert, Ox3, ETIENNE Respiration: Resp=17 B/min, SpO2=98 %, O2=2 lpm Vitals capture started with the following parameters, Patient=Adult, Interval=5 min, Initial Pre zzcyf=957 mmHg, 8:55:58 Deflation Rate=5 mmHg, Cuff placed on Right Arm 8:57:15 HR=67 bpm, FOJD=265/74 mmhg, SpO2=97.0 %, Resp=10 B/min, Pain=0, Lulu=10, Owen=2 9:00:56 Reference ECG taken 9:01:47 HR=68 bpm, VCCO=814/82 mmhg, SpO2=97.0 %, Resp=12 B/min, Pain=0, Lulu=10, Owen=2 9:03:02 Right Radial and groin(s) prepped with 2% chlorhexidine, and draped after a 3 min. waiting t bhavesh. 9:03:43 paged 9:06:48 HR=70 bpm, SOUR=905/78 mmhg, IiS0=559.0 %, Resp=13 B/min, Pain=0, Lulu=10, Owen=2 9:08:47 Pressure channel 2 zeroed. 9:10:14 MD arrived. 9:11:47 HR=66 bpm, ZJLV=019/78 mmhg, SpO2=99.0 %, Resp=16 B/min, Pain=0, Lulu=10, Owen=2 9:16:44 HR=69 bpm, YGNJ=189/85 mmhg, SpO2=99.0 %, Resp=18 B/min, Pain=0, Lulu=10, Owen=2 Time Out. Correct patient, correct procedure, correct physician, labs, allergies, and equipment verified with chemistry laboratory technician 9:16:59 team present. Fire risk assesment completed (see hard stop sheet for coding). Time Out Concu rred by MD and individual staff in procedure. 9:17:06 Case Start 9:17:24 2 mg VERSED given in lab by Floridalma Montilla, RN via Peripheral IV. 9:18:29 50 mcg FENTANYL given in lab by Floridalma Montilla, ALEXUS via Peripheral IV. 9:18:49 Verbal Stimulation=2 Physical Stimulation=2 Airway=2 Respiration=2 TOTAL=8. (0=absent, 1=palafox ited, 2=present) 9:19:00 20 mL 1% XYLOCAINE given in lab by Wing Edel Chavez in Right Radial via Subcutaneous. 9:21:41 HR=68 bpm, RMTK=205/66 mmhg, SpO2=97.0 %, Resp=21 B/min, Pain=0, Lulu=10, Owen=2 A SHEATH, FR6 TRANSRADIAL SLENDER 10CM FR 6 was advanced into the Radial (right) using the Koko michaels 9:25:39 technique. 9:25:42 Access site was Right Radial Artery . 9:25:49 A wire was inserted via Radial (right). 5 mL (Bolus) RADIAL COCKTAIL given in lab by Wing Edel Chavez via Radial. Using [Solution Name]. Vonnie son: Ntg 200mcg 9:25:50 Verapamil 2.5mg Heparin 2500U. A CATHETER, FR5 OPTITORQUE RADIAL TIG 4.0 FR 5 was advanced over a wire. OMNIPAQUE, 350 MG, 150M L 150ML 9:26:30 was used for injections. 9:26:47 HR=73 bpm, TXOD=509/50 mmhg, SpO2=97.0 %, Resp=7 B/min, Pain=0, Lulu=10, Owen=2 Recorded Pressure: Ao, HR=75, Condition=Condition 1 9:29:53 (Aorta) Ao 95/46/66 9:30:23 The LCA was injected and visualized at various angles. OMNIPAQUE, 350 MG, 150ML 150ML used. 9:31:39 HR=80 bpm, IUBV=119/60 mmhg, SpO2=92.0 %, Resp=8 B/min, Pain=0, Lulu=10, Owen=2 After removing the current catheter a PIGTAIL ANG. INFINITI CATHETER FR 5 was advanced over a WI RE, EXCHANGE 9:34:16 260CM 3MMJ 260CM. Recorded Pressure: LV, HR=76, Condition=Condition 1 9:35:33 (Left Ventricle) LV 109/1/7 Recorded Pressure: LV, Ao, HR=78, Condition=Condition 1 9:35:53 (Left Ventricle) LV 121/6/8, (Aorta) Ao 119/51/83 9:36:38 HR=73 bpm, IHYB=221/56 mmhg, SpO2=95.0 %, Resp=10 B/min, Pain=0, Lulu=10, Owen=2 After removing the current catheter a XBLAD 3.5 GUIDE CATHETER FR 6 was advanced over a WIRE, EX CHANGE 9:38:03 260CM 3MMJ 260CM. 9:38:17 OMNIPAQUE, 350 MG, 150ML 150ML and 30 MARGARITA INDEFLATOR added. 9:38:44 10 mL ANGIOMAX BOLUS given in lab by Floridalma Montilla, RN via Peripheral IV. Ordered by Wing Edel Chavez. 9:39:52 A WIRE, WHISPER W/HYDROCOAT 190CM 190CM was inserted via Radial (right). 1.772 mg/kg/hr ANGIOMAX DRIP given in lab by Floridalma Montilla, RN via Peripheral IV. Pump/Drip F low = 22.5 ml/hr 9:40:15 using NaCl .9 with a concentration of 250 mg in 50 ml. 9:41:37 HR=75 bpm, RMNI=813/67 mmhg, SpO2=96.0 %, Resp=10 B/min, Pain=0, Lulu=10, Owen=2 9:43:03 A WIRE, ASAHI PROWATER 180CM 180CM was inserted via Radial (right). 9:46:41 HR=77 bpm, JYNO=154/70 mmhg, SpO2=96.0 %, Resp=10 B/min, Pain=0, Lulu=10, Owen=2 A STENT, 2.75 30MM FRED 2.75 30MM was advanced through a XBLAD 3.5 GUIDE CATHETER FR 6 over a W TRELL, 9:47:52 WHISPER W/HYDROCOAT 190CM 190CM. A STENT, 2.75 30MM FRED 2.75 30MM was deployed using a 30 MARGARITA INDEFLATOR at 12 atmospheres for 15 seconds 9:49:43 in the Radial (right). 9:50:38 Delivery device removed A BALLOON, 2.75 X 15MM NC EUPHORA 15MM was inserted over WIRE, WHISPER W/HYDROCOAT 190CM 190CM via 9:50:41 the LAD Prox. 9:52:25 HR=74 bpm, PGBK=797/67 mmhg, SpO2=99.0 %, Resp=11 B/min, Pain=0, Lulu=10, Owen=2 A BALLOON, 2.75 X 15MM NC EUPHORA 15MM over a WIRE, WHISPER W/HYDROCOAT 190CM 190CM in the LAD Prox 9:53:07 was inflated using a 30 MARGARITA INDEFLATOR at 18 margarita for 30 sec. 9:54:08 Balloon Removed. 9:56:26 Wire removed 9:56:27 Wire removed 9:56:49 HR=69 bpm, MVNX=960/70 mmhg, SpO2=97.0 %, Resp=11 B/min, Pain=0, Lulu=10, Owen=2 9:57:02 Catheter was removed 9:57:20 Case End (Physician broke scrub) Assessment: Final Case, HR=68 BPM, Rhythm=Sinus, JSXR=313/70 mmhg, Chest Pain=0, Edema=None, Color=Normal, Skin = Warm, Dry Right Pulses: Wesley Ped=2, Femoral=2, Radial=2 9:59:06 Left Pulses: Wesley Ped=2, Femoral=2 Neurological: State=Alert, Ox3, ETIENNE Respiration: Resp=17 B/min, SpO2=98 %, O2=2 lpm 9:59:26 Catheter(s) removed without difficulty Radial Compression Device Used. 11 mLs of air placed in BAND, RADIAL COMPRESSION TR SHORT 24 24 CM. Affected 9:59:27 hand 96 % O2 saturation. 9:59:33 No case complications noted. 9:59:33 Cine recording checked. 9:59:34 Bedside Report will be given. 9:59:35 Implantable Device card placed in patient's chart. 9:59:38 A Left Heart Cath was performed. 10:00:56 NIBP STAT measurement started. 10:01:40 HR=58 bpm, DLHK=077/66 mmhg, SpO2=96.0 %, Resp=12 B/min 10:03:19 180 mg BRILLINTA given in lab by Floridalma Montilla, RN in Per mouth via Oral. Ordered by Wing Edel Chavez. 10:06:12 Vitals capture stopped. 10:07:19 Patient moved to [facility] End Study - Contrast Media Used In Study Contrast Total Opened (mL) Total Used (mL) Total Wasted (mL) Omnipaque 80 80 0 End Study - Maximum Contrast Load Max Contrast Load (mL) 453.6 End Study - Radiation Exposure Fluoro Time Fluoro Dose (mGy) Cine Dose (uGym2) (minutes) 9.2 687 [id number] End Study - Sheaths Sheaths Pulled By Sheath Hold Time (min) Shen Coleman End Study - Patient Disposition Complications Transferred To Interventional Outcome No Telemetry Bed successful
--- NOTE | 2018-06-09 10:41 | P.PNCA ---
Subjective Interval history: Tolerated LHC + LAD PCI well Medications and Allergies Active Medications: Active Medications Acetaminophen (Tylenol) 500 mg PO Q4H PRN PRN Reason: HEADACHE Anastrozole (Arimidex) 1 mg PO DAILY [facility] Last Admin: 06/09/18 08:33 Dose: 1 mg Aspirin (Aspirin) 325 mg PO DAILY [facility] Last Admin: 06/09/18 08:32 Dose: 325 mg Atorvastatin Calcium (Lipitor) 40 mg PO DAILY [facility] Last Admin: 06/09/18 08:32 Dose: 40 mg Citalopram Hydrobromide (Celexa) 20 mg PO DAILY [facility] Last Admin: 06/09/18 08:33 Dose: 20 mg Heparin Sodium (Porcine) (Heparin Inj) 5,000 units IV.PUSH UNSCH PRN PRN Reason: aPTT < 25 Heparin Sodium (Porcine) (Heparin Inj) 2,500 units IV.PUSH UNSCH PRN PRN Reason: aPTT 25-39 Heparin Sodium/Dextrose (Heparin/D5w 25,000 U/250 Ml) 25,000 unit in 250 mls @ 0 mls/hr IV.CONT TITRATE PRN; Protocol PRN Reason: Per Protocol Last Titration: 06/09/18 06:24 Dose: 600 units/hr, 6 mls/hr Metoprolol Tartrate (Lopressor) 25 mg PO BID [facility] Last Admin: 06/09/18 08:33 Dose: 25 mg Morphine Sulfate (Morphine Inj) 2 mg IV.PUSH Q5M PRN PRN Reason: PAIN SCALE 6 TO 10 Nitroglycerin (Nitrostat Sl) 0.4 mg SL Q5M PRN PRN Reason: SYS BP GREATER THAN 170 MMHG Last Admin: 06/08/18 15:56 Dose: 0.4 mg Nitroglycerin (Nitrostat Sl) 0.4 mg SL Q5M PRN PRN Reason: ANGINA Pantoprazole Sodium (Protonix) 20 mg PO DAILY [facility] Last Admin: 06/09/18 08:32 Dose: 20 mg Sodium Chloride (Ns Flush) 2 ml IV.FLUSH UNSCH PRN PRN Reason: FLUSH AFTER USING IV ACCESS Sodium Chloride (Ns Flush) 2 ml IV.FLUSH BID [facility] Last Admin: 06/09/18 08:36 Dose: Not Given Sodium Chloride (Ns Flush) 2 ml IV.FLUSH PRN PRN PRN Reason: FLUSH AFTER USING IV ACCESS Timolol Maleate (Timoptic 0.5% Drops) 1 drops EACH EYE BID ISSAC Last Admin: 06/08/18 22:31 Dose: Not Given Allergies Allergy/AdvReac Type Severity Reaction Status Date / Time ketoprofen Allergy Severe Intestinal Unverified 01/29/17 17:44 Bleeding naproxen Allergy Severe Intestinal Unverified 01/29/17 17:44 Bleeding ezetimibe Allergy Unknown unknown Unverified 06/08/18 13:02 pravastatin Allergy Unknown unknown Unverified 06/08/18 13:02 Home Medications Medication Instructions Recorded Confirmed Type alendronate 70 mg PO QWEEK 06/08/18 06/08/18 History anastrozole 1 mg PO DAILY 06/08/18 06/08/18 History atorvastatin 40 mg PO DAILY 06/08/18 06/08/18 History citalopram 20 mg PO DAILY 06/08/18 06/08/18 History omeprazole 20 mg PO DAILY 06/08/18 06/08/18 History timolol maleate 1 drp OPHTHALMIC (EYE) BID 06/08/18 06/08/18 History tobramycin-dexamethasone 0.5 inch OPHTHALMIC (EYE) Q8H 06/08/18 06/08/18 History Physical Exam Vital signs: Vital Signs 06/08/18 12:58 06/08/18 13:12 06/08/18 14:42 Temperature 98.1 F Pulse Rate 78 82 Respiratory Rate 16 16 Blood Pressure 165/77 H 198/94 H Pulse Oximetry 98 84 L 98 06/08/18 16:00 06/08/18 16:02 06/08/18 17:25 Temperature Pulse Rate 100 H 79 Respiratory Rate 16 16 Blood Pressure 187/86 H 133/74 164/70 H Pulse Oximetry 95 98 06/08/18 21:23 06/08/18 23:00 06/09/18 00:00 Temperature 97.7 F Pulse Rate 84 84 66 Respiratory Rate 18 18 Blood Pressure 166/78 H 142/52 H Pulse Oximetry 97 98 06/09/18 01:00 06/09/18 02:00 06/09/18 03:00 Temperature Pulse Rate 66 64 60 Respiratory Rate 18 Blood Pressure 158/65 H Pulse Oximetry 98 06/09/18 04:00 06/09/18 05:00 06/09/18 06:00 Temperature Pulse Rate 60 60 58 L Respiratory Rate Blood Pressure Pulse Oximetry 06/09/18 07:00 06/09/18 08:00 Temperature 98.0 F Pulse Rate 62 64 Respiratory Rate 18 Blood Pressure 162/83 H Pulse Oximetry 100 100 Intake & Output 06/08/18 06/09/18 06/09/18 18:59 06:59 18:59 Intake Total 240 / 240 Output Total 300 / 300 Balance -60 / -60 Weight 63.5 kg 64.4 kg Intake: Oral 240 / 240 Output: Urine 300 / 300 - Constitutional no acute distress - Routine HEENT Exam Head: Present: normocephalic, atraumatic - Routine Neck Exam Present: supple, full ROM, JVD. Absent: carotid bruit - Routine Respiratory Exam Present: rales - Routine Cardiovascular Exam Present: RRR, S1, S2, murmur - Routine Abdominal Exam Present: soft - Routine Extremities Exam Present: full ROM. Absent: edema - Routine Neurological Exam Present: alert, oriented X3, CN II-XII intact - Routine Psychiatric Exam Present: normal affect Results 06/09/18 02:40 06/09/18 02:40 Cardiac Enzymes 06/08/18 06/08/18 06/08/18 Range/Units 13:34 13:34 16:32 AST 23 (15-37) U/L Troponin I 0.21 H 0.27 H (0.02-0.05) ng/mL B-Natriuretic Peptide 518 H (0-100) pg/mL Coagulation 06/08/18 06/08/18 06/08/18 Range/Units 13:34 13:34 21:15 PT 10.6 (9.8-11.6) sec APTT 25.7 87.5 H D (23.4-31.7) sec B-Natriuretic Peptide 518 H (0-100) pg/mL 06/09/18 Range/Units 02:40 PT (9.8-11.6) sec APTT 48.5 H D (23.4-31.7) sec B-Natriuretic Peptide (0-100) pg/mL Lipids 06/09/18 Range/Units 02:40 Triglycerides 84 (42-150) mg/dL Cholesterol 218 H (120-200) mg/dL HDL Cholesterol 63.2 H (40.0-60.0) mg/dL Cholesterol/HDL Ratio 3.44 Ratio CBC 06/08/18 06/09/18 Range/Units 13:34 02:40 WBC 7.6 7.4 (4.0-11.0) th/mm3 RBC 4.67 4.09 (4.00-5.30) mil/mm3 Hgb 14.7 13.7 (11.6-15.3) gm/dL Hct 45.8 39.4 (35.0-46.0) % Plt Count 287 240 (150-450) th/mm3 Neut # (Auto) 4.4 4.4 (1.8-7.7) th/mm3 Lymph # (Auto) 2.2 2.2 (1.0-4.8) th/mm3 [place] # (Auto) 0.7 0.7 (0.0-0.9) th/mm3 Eos # (Auto) 0.1 0.2 (0.0-0.4) th/mm3 Baso # (Auto) 0.2 0.0 (0.0-0.2) th/mm3 Comprehensive Metabolic Panel 06/08/18 06/09/18 Range/Units 13:34 02:40 Sodium 141 142 (136-145) meq/L Potassium 3.8 3.5 (3.5-5.1) meq/L Chloride 107 106 (98-107) meq/L Carbon Dioxide 26.5 29.6 (21.0-32.0) meq/L BUN 23 H 21 H (7-18) mg/dL Creatinine 0.72 0.71 (0.50-1.00) mg/dL Calcium 8.7 8.4 L (8.5-10.1) mg/dL AST 23 (15-37) U/L ALT 23 (10-53) U/L Alkaline Phosphatase 83 (45-117) U/L Total Protein 7.2 (6.4-8.2) g/dL Albumin 3.3 L (3.4-5.0) g/dL Intake and Output 06/08/18 06/09/18 06/09/18 22:59 06:59 14:59 Intake Total 240 / 240 Output Total 300 / 300 Balance -60 / -60 Intake: Oral 240 / 240 Output: Urine 300 / 300 Other: Weight 64.4 kg - Imaging and Cardiology Imaging: Impressions Chest CTA 06/08/18 13:12 CONCLUSION: 1. This study is negative for pulmonary embolism. 2. Scattered groundglass infiltrates are noted bilaterally consistent with atelectasis, mild infiltrates and/or mild pulmonary vascular congestion. Clinical correlation is recommended. 3. Cardiomegaly. Chest X-Ray 06/08/18 13:12 CONCLUSION: Prominence in interstitium at the bases which could be secondary to some underlying interstitial disease. Assessment and Plan - Assessment (1) Non-ST elevation MN (NSTEMI) Code(s): I21.4 - Non-ST elevation (NSTEMI) myocardial infarction Status: Acute (2) CHF (congestive heart failure) Code(s): I50.9 - Heart failure, unspecified Status: Acute (3) GERD (gastroesophageal reflux disease) Code(s): K21.9 - Gastro-esophageal reflux disease without esophagitis Status: Acute (4) High cholesterol Code(s): E78.00 - Pure hypercholesterolemia, unspecified Status: Chronic - Plan 88 years old lady, with new onset CHF, and non STEMI 1. non STEMI LHC 06/09/18 showed proximal LAD 90% stenosis, stented with a [place] 2.75x30 mm. patent LM, Cx, RCA. LVEF 40% will start Aspirin 81 mg daily, Brilinta 90 mg BID, continue Lipitor Planning DC in AM 2. new onset CHF. LVEF 40% Will continue Metoprolol, will add Losartan. continue Lasix. Echo ordered. 3. Dyslipidemia. Continue atorvastatin. (2) CHF (congestive heart failure) Qualifiers: Heart failure type: unspecified Heart failure chronicity: acute Qualified Code(s): I50.9 - Heart failure, unspecified
[2018-06-09] MEDS: Timolol 0.5% Drops 5 ML Bottle EACH EYE SCH ×2 (11:43→21:45)
--- NOTE | 2018-06-09 11:49 | ECG ---
Date Performed: 06/08/2018 Time Performed: 18:33:21 PTAGE: 88 years EKG: Sinus rhythm POSSIBLE RIGHT VENTRICULAR CONDUCTION DELAY LEFT ANTERIOR FASCICULAR BLOCK VOLTAGE CRITERIA FOR LVH ABNORMAL ECG PREVIOUS TRACING : 06/08/2018 13.38 Since the previous tracing, no significant change noted DOCTOR: Zoltan Ramires Interpretating Date/Time 06/09/2018 11:47:02
--- NOTE | 2018-06-09 11:57 | ECG ---
Date Performed: 06/08/2018 Time Performed: 13:38:18 PTAGE: 88 years EKG: Sinus rhythm WITH FREQUENT VENTRICULAR PREMATURE COMPLEXES MARKED LEFT AXIS DEVIATION INCOMPLETE RIGHT BUNDLE BRA NCH BLOCK VOLTAGE CRITERIA FOR LVH POSSIBLE SEPTAL MYOCARDIAL INFARCTION ABNORMAL ECG PREVIOUS TRACING : 05/14/2011 18.16 Since the previous tracing, no significant change noted DOCTOR: Zoltan Ramires Interpretating Date/Time 06/09/2018 11:55:41
[2018-06-09] MEDS: Furosemide 20 MG Tablet PO SCH (12:16)
--- NOTE | 2018-06-09 16:08 | ECHRPT ---
Indication: Chest pain, unspecified CONCLUSIONS The left ventricular systolic function is normal with an estimated ejection fraction in the range of 60-65%. Wall thickness is normal. Normal left ventricular size. Mild mitral valve regurgitation. There is mild tricuspid valve regurgitation. The estimated pulmonary arterial pressure is 20.5 mmHg. BP: / HR: Rhythm: Sinus MEASUREMENTS (Male / Female) Normal Values Technical Quality:Fair 2D ECHO LV Diastolic Diameter PLAX 4.6 cm 4.2 - 5.9 / 3.9 - 5.3 cm LV Systolic Diameter PLAX 3.2 cm IVS Diastolic Thickness 0.9 cm 0.6 - 1.0 / 0.6 - 0.9 cm LVPW Diastolic Thickness 0.9 cm 0.6 - 1.0 / 0.6 - 0.9 cm LV Relative Wall Thickness 0.4 LVOT Diameter 1.9 cm M-MODE Aortic Root Diameter MM 2.2 cm LA Systolic Diameter MM 4.8 cm LA Ao Ratio MM 2.2 AV Cusp Separation MM 1.7 cm DOPPLER AV Peak Velocity 155.0 cm/s AV Peak Gradient 9.6 mmHg LVOT Peak Velocity 59.7 cm/s LVOT Peak Gradient 1.4 mmHg AV Area Cont Eq pk 1.1 cm MR Peak Velocity 380.0 cm/s MR Peak Gradient 57.8 mmHg Mitral E Point Velocity 71.6 cm/s Mitral A Point Velocity 95.3 cm/s Mitral E to A Ratio 0.8 LV E' Lateral Velocity 6.4 cm/s Mitral E to LV E' Lateral Ratio 11.1 LV E' Septal Velocity 6.1 cm/s Mitral E to LV E' Septal Ratio 11.7 TR Peak Velocity 162.0 cm/s TR Peak Gradient 10.5 mmHg Right Atrial Pressure 10.0 mmHg Pulmonary Artery Systolic Pressu 20.5 mmHg Right Ventricular Systolic Press 20.5 mmHg PV Peak Velocity 107.0 cm/s PV Peak Gradient 4.6 mmHg FINDINGS LEFT VENTRICLE The left ventricular systolic function is normal with an estimated ejection fraction in the range of 60-65%. Wall thickness is normal. Normal left ventricular size. RIGHT VENTRICLE Normal right ventricular size and systolic function. LEFT ATRIUM The left atrial size is normal. RIGHT ATRIUM The right atrial size is normal. ATRIAL SEPTUM Normal atrial septal thickness without atrial level shunting by limited color doppler interrogation. AORTA The aortic root and proximal ascending aorta are normal in size on limited imaging. MITRAL VALVE Mild mitral valve regurgitation. AORTIC VALVE Trileaflet aortic valve. No aortic valve stenosis or regurgitation. TRICUSPID VALVE There is mild tricuspid valve regurgitation. The estimated pulmonary arterial pressure is 20.5 mmHg. PULMONARY VALVE No pulmonary valve regurgitation or stenosis. VESSELS The inferior vena cava is normal in size. PERICARDIUM No pericardial effusion. Donnell Ni MD, FACC, [facility] [place] ([place]ronically Signed) Final Date:09 June 2018 16:07
--- NOTE | 2018-06-09 19:24 | MA ---
cc: Wing Edel Chavez MD DATE: 06/09/2018 CLINICAL INFORMATION: An 88-year-old lady who presented to the hospital because of worsening chest pain and shortness of breath, found to have an elevated troponin. PROCEDURE PERFORMED: 1. Left heart catheterization. 2. Left ventriculogram. 3. Selective coronary angiogram. 4. Percutaneous intervention of proximal left anterior descending with stenting. 5. Moderate sedation time of 49 minutes. PROCEDURES DETAILS AND FINDINGS: The procedure, indications, risks and benefits all explained to the patient, all her questions answered, informed consent obtained. Under standard sterile conditions, lidocaine was infiltrated into the right wrist. The right radial artery was cannulized using at 6 Libyan 10 cm sheath with a modified Seldinger technique. A 5 [place] TIG catheter was advanced into the left ventricle. The left angiogram was taken in the ANDRES projection. Left ventricular pressure was measured. The catheter was pulled back to the aorta. Then, the catheter engaged the left main coronary. Angiograms were taken in different projections. The catheter engaged the RCA ostium and angiograms were taken. After the angiograms, we identified a high-grade stenosis in the proximal LAD and a decision was made to proceed with intervention. A 6 [place]yan XBLAD 3.5 guide catheter was used to engage the left main coronary. A [employer] wire was successfully navigated to the proximal LAD lesion into the distal LAD. The above-mentioned lesion was successfully stented with a 2.75 x 30 mm NATIVIDAD Rashid stent deployed at 14 atmospheres. Repeat angiogram showed an excellent angiographic result, no residual stenosis. The patient tolerated the procedure well. No complications occurred. FINDINGS: 1. Left ventricle is normal in size with mildly depressed function. Estimated LVEF of 40%. 2. Patent left main. 3. Proximal LAD 90% stenosis, successfully stented with a 2.75 x 30 mm NATIVIDAD stent. 4. Small diagonal with mild irregularity. 5. Codominant circumflex with mild irregularity. 6. Codominant RCA with mild irregularity. RECOMMENDATIONS: The patient will be taking aspirin 81 mg daily, Brilinta 90 mg b.i.d. The patient also will continue atorvastatin. We will also add metoprolol and losartan to current regimen. Wing Edel Chavez MD WYL/geremias , 04:46 PM , 04:54 PM FER
[2018-06-09] MEDS ORDERED: Temazepam 15 MG Capsule PO PRN (19:47)
[2018-06-10 07:07] LABS: Baso % (Auto) 0.3 % (0.0-2.0); Eos # (Auto) 0.2 th/mm3 (0.0-0.4); Eos % (Auto) 2.1 % (0.0-4.0); Hematocrit 38.1 % (35.0-46.0); Hemoglobin 13.3 gm/dL (11.6-15.3); Lymph # (Auto) 1.6 th/mm3 (1.0-4.8); Lymph % (Auto) 21.5 % (9.0-44.0); Mean Corpuscular Volume 97.2 fL (80.0-100.0); Mean Platelet Volume 8.7 fL (7.0-11.0); Mono # (Auto) 0.7 th/mm3 (0.0-0.9); Mono % (Auto) 9.1 % (0.0-8.0); Neut # (Auto) 4.9 th/mm3 (1.8-7.7); Platelet Count 216 th/mm3 (150-450); Red Blood Count 3.92 mil/mm3 (4.00-5.30); Red Cell Distribution Width 14.8 % (11.6-17.2); White Blood Count 7.4 th/mm3 (4.0-11.0)
[2018-06-10] MEDS: Pantoprazole Sodium 20 MG DR Tablet PO SCH (08:40)
[2018-06-10] MEDS: Anastrozole 1 MG Tablet PO SCH (08:40)
[2018-06-10] MEDS: Furosemide 20 MG Tablet PO SCH (08:40)
[2018-06-10] MEDS: Citalopram 20 MG Tablet PO SCH (08:41)
[2018-06-10] MEDS: Metoprolol Tartrate 25 MG Tablet PO SCH (08:41)
[2018-06-10] MEDS: Timolol 0.5% Drops 5 ML Bottle EACH EYE SCH (08:42)
--- NOTE | 2018-06-10 09:47 | P.PNIM ---
Subjective Interval history: eager for dc Physical Exam Vital signs: Last Vital Signs Temp 97.9 F 06/10/18 07:00 Pulse 71 06/10/18 07:00 Resp 18 06/10/18 07:00 BP 165/80 H 06/10/18 07:00 Pulse Ox 98 06/10/18 09:14 Narrative: nad heart reg lung cta abd s/nt ext no edema Results Labs CBC & Chem 7: 06/10/18 05:59 06/09/18 02:40 Assessment and Plan Assessment (1) Non-ST elevation FL (NSTEMI): Code(s): I21.4 - Non-ST elevation (NSTEMI) myocardial infarction Status: Acute (2) CHF (congestive heart failure): Code(s): I50.9 - Heart failure, unspecified Status: Acute (3) GERD (gastroesophageal reflux disease): Code(s): K21.9 - Gastro-esophageal reflux disease without esophagitis Status: Acute (4) High cholesterol: Code(s): E78.00 - Pure hypercholesterolemia, unspecified Status: Chronic Plan ntemi brenda lad. systolic chf. ef 40% Pt admitted from [facility] with cp/sob and concern for nstemi dc on asa/brillinta/statin/arb/bb cardiology f/u. Progress Note: Quality VTE Deep Vein Thrombosis/Pulmonary Embolism Present on Admission: No _ (1) CHF (congestive heart failure) Qualifiers: Heart failure chronicity: acute Heart failure type: unspecified Qualified Code(s): I50.9 - Heart failure, unspecified (2) GERD (gastroesophageal reflux disease) Qualifiers: Esophagitis presence:
[2018-06-10] MEDS ORDERED: Potassium Chloride 10 MEQ ER Capsule PO ONE (10:00)
--- NOTE | 2018-06-10 11:01 | P.PNCA ---
Subjective Interval history: She feels much better, no chest pain, no dyspnea, no arrhythmia Medications and Allergies Active Medications: Active Medications Acetaminophen (Tylenol) 500 mg PO Q4H PRN PRN Reason: HEADACHE Last Admin: 06/09/18 12:28 Dose: 500 mg Anastrozole (Arimidex) 1 mg PO DAILY [facility] Last Admin: 06/10/18 08:40 Dose: 1 mg Aspirin (Ecotrin) 81 mg PO DAILY [facility] Last Admin: 06/10/18 08:41 Dose: 81 mg Atorvastatin Calcium (Lipitor) 40 mg PO DAILY [facility] Last Admin: 06/10/18 08:41 Dose: 40 mg Citalopram Hydrobromide (Celexa) 20 mg PO DAILY [facility] Last Admin: 06/10/18 08:41 Dose: 20 mg Furosemide (Lasix) 20 mg PO DAILY [facility] Last Admin: 06/10/18 08:40 Dose: 20 mg Losartan Potassium (Cozaar) 25 mg PO DAILY [facility] Last Admin: 06/10/18 08:40 Dose: 25 mg Metoprolol Tartrate (Lopressor) 25 mg PO BID [facility] Last Admin: 06/10/18 08:41 Dose: 25 mg Morphine Sulfate (Morphine Inj) 2 mg IV.PUSH Q5M PRN PRN Reason: PAIN SCALE 6 TO 10 Nitroglycerin (Nitrostat Sl) 0.4 mg SL Q5M PRN PRN Reason: SYS BP GREATER THAN 170 MMHG Last Admin: 06/08/18 15:56 Dose: 0.4 mg Nitroglycerin (Nitrostat Sl) 0.4 mg SL Q5M PRN PRN Reason: ANGINA Pantoprazole Sodium (Protonix) 20 mg PO DAILY [facility] Last Admin: 06/10/18 08:40 Dose: 20 mg Sodium Chloride (Ns Flush) 2 ml IV.FLUSH UNSCH PRN PRN Reason: FLUSH AFTER USING IV ACCESS Sodium Chloride (Ns Flush) 2 ml IV.FLUSH BID [facility] Last Admin: 06/10/18 08:42 Dose: 2 ml Sodium Chloride (Ns Flush) 2 ml IV.FLUSH PRN PRN PRN Reason: FLUSH AFTER USING IV ACCESS Temazepam (Restoril) 15 mg PO HS PRN PRN Reason: FOR INSOMNIA Last Admin: 06/09/18 21:45 Dose: 15 mg Ticagrelor (Brilinta) 90 mg PO BID [facility] Last Admin: 06/10/18 08:41 Dose: 90 mg Timolol Maleate (Timoptic 0.5% Drops) 1 drops EACH EYE BID [facility] Last Admin: 06/10/18 08:42 Dose: Not Given Allergies Allergy/AdvReac Type Severity Reaction Status Date / Time ketoprofen Allergy Severe Intestinal Unverified 01/29/17 17:44 Bleeding naproxen Allergy Severe Intestinal Unverified 01/29/17 17:44 Bleeding ezetimibe Allergy Unknown unknown Unverified 06/08/18 13:02 pravastatin Allergy Unknown unknown Unverified 06/08/18 13:02 Home Medications Medication Instructions Recorded Confirmed Type alendronate 70 mg PO QWEEK 06/08/18 06/08/18 History anastrozole 1 mg PO DAILY 06/08/18 06/08/18 History atorvastatin 40 mg PO DAILY 06/08/18 06/08/18 History citalopram 20 mg PO DAILY 06/08/18 06/08/18 History omeprazole 20 mg PO DAILY 06/08/18 06/08/18 History timolol maleate 1 drp OPHTHALMIC (EYE) BID 06/08/18 06/08/18 History tobramycin-dexamethasone 0.5 inch OPHTHALMIC (EYE) Q8H 06/08/18 06/08/18 History Physical Exam Vital signs: Vital Signs 06/09/18 11:00 06/09/18 12:00 06/09/18 13:00 Temperature Pulse Rate 61 60 62 Respiratory Rate Blood Pressure 142/99 H Pulse Oximetry 96 06/09/18 14:00 06/09/18 15:00 06/09/18 16:00 Temperature 98.0 F Pulse Rate 60 65 73 Respiratory Rate 20 Blood Pressure 143/58 H Pulse Oximetry 97 06/09/18 17:00 06/09/18 18:00 06/09/18 19:00 Temperature 98.2 F Pulse Rate 75 70 66 Respiratory Rate 18 Blood Pressure 180/79 H Pulse Oximetry 96 06/09/18 20:00 06/09/18 21:00 06/09/18 22:00 Temperature Pulse Rate 68 70 68 Respiratory Rate Blood Pressure Pulse Oximetry 96 06/09/18 23:00 06/10/18 00:00 06/10/18 01:00 Temperature 98.4 F Pulse Rate 61 64 82 Respiratory Rate 16 Blood Pressure 172/70 H Pulse Oximetry 98 06/10/18 02:00 06/10/18 03:00 06/10/18 04:00 Temperature 98.1 F Pulse Rate 77 67 66 Respiratory Rate 16 Blood Pressure 173/74 H Pulse Oximetry 99 06/10/18 05:00 06/10/18 06:00 06/10/18 07:00 Temperature 97.9 F Pulse Rate 69 67 67 Respiratory Rate 18 Blood Pressure 165/80 H Pulse Oximetry 97 06/10/18 08:00 06/10/18 09:14 Temperature Pulse Rate Respiratory Rate Blood Pressure Pulse Oximetry 97 98 Intake & Output 06/09/18 06/10/18 06/10/18 18:59 06:59 18:59 Intake Total 530 / 530 480 / 480 Output Total 400 / 400 550 / 550 Balance 130 / 130 -70 / -70 Weight 64.7 kg Intake: IV 50 / 50 Heparin/D5W 25,000 U/250 mL 25, 50 / 50 000 unit In 250 ml @ Per Protocol IV.CONT TITRATE PRN Rx #:[id number] Oral 480 / 480 480 / 480 Output: Urine 400 / 400 550 / 550 Other: # Voids 2 - Constitutional no acute distress - Routine HEENT Exam Head: Present: normocephalic, atraumatic - Routine Neck Exam Present: supple, full ROM. Absent: JVD, carotid bruit - Routine Respiratory Exam Present: CTA bilaterally - Routine Cardiovascular Exam Present: RRR, S1, S2, murmur (2/6 systolic murmur apex) - Routine Abdominal Exam Present: soft, normoactive bowel sounds - Routine Extremities Exam Present: normal capillary refill, vascular access (right wrist soft no hematoma) - Routine Skin Exam Present: intact, dry, warm - Routine Neurological Exam Present: alert, oriented X3, CN II-XII intact - Routine Psychiatric Exam Present: normal affect Results 06/10/18 05:59 06/09/18 02:40 Cardiac Enzymes 06/08/18 06/08/18 06/08/18 Range/Units 13:34 13:34 16:32 AST 23 (15-37) U/L Troponin I 0.21 H 0.27 H (0.02-0.05) ng/mL B-Natriuretic Peptide 518 H (0-100) pg/mL Coagulation 1206/08/18 06/08/18 Range/Units 13:34 13:34 21:15 PT 10.6 (9.8-11.6) sec APTT 25.7 87.5 H D (23.4-31.7) sec B-Natriuretic Peptide 518 H (0-100) pg/mL 06/09/18 Range/Units 02:40 PT (9.8-11.6) sec APTT 48.5 H D (23.4-31.7) sec B-Natriuretic Peptide (0-100) pg/mL Lipids 06/09/18 Range/Units 02:40 Triglycerides 84 (42-150) mg/dL Cholesterol 218 H (120-200) mg/dL HDL Cholesterol 63.2 H (40.0-60.0) mg/dL Cholesterol/HDL Ratio 3.44 Ratio CBC 06/08/18 06/09/18 06/10/18 Range/Units 13:34 02:40 05:59 WBC 7.6 7.4 7.4 (4.0-11.0) th/mm3 RBC 4.67 4.09 3.92 L (4.00-5.30) mil/mm3 Hgb 14.7 13.7 13.3 (11.6-15.3) gm/dL Hct 45.8 39.4 38.1 (35.0-46.0) % Plt Count 287 240 216 (150-450) th/mm3 Neut # (Auto) 4.4 4.4 4.9 (1.8-7.7) th/mm3 Lymph # (Auto) 2.2 2.2 1.6 (1.0-4.8) th/mm3 Tripp # (Auto) 0.7 0.7 0.7 (0.0-0.9) th/mm3 Eos # (Auto) 0.1 0.2 0.2 (0.0-0.4) th/mm3 Baso # (Auto) 0.2 0.0 0.0 (0.0-0.2) th/mm3 Comprehensive Metabolic Panel 06/08/18 06/09/18 Range/Units 13:34 02:40 Sodium 141 142 (136-145) meq/L Potassium 3.8 3.5 (3.5-5.1) meq/L Chloride 107 106 (98-107) meq/L Carbon Dioxide 26.5 29.6 (21.0-32.0) meq/L BUN 23 H 21 H (7-18) mg/dL Creatinine 0.72 0.71 (0.50-1.00) mg/dL Calcium 8.7 8.4 L (8.5-10.1) mg/dL AST 23 (15-37) U/L ALT 23 (10-53) U/L Alkaline Phosphatase 83 (45-117) U/L Total Protein 7.2 (6.4-8.2) g/dL Albumin 3.3 L (3.4-5.0) g/dL Intake and Output 06/09/18 06/10/18 06/10/18 22:59 06:59 14:59 Intake Total 480 / 480 480 / 480 Output Total 400 / 400 550 / 550 Balance 80 / 80 -70 / -70 Intake: Oral 480 / 480 480 / 480 Output: Urine 400 / 400 550 / 550 Other: # Voids 2 Weight 64.7 kg - Imaging and Cardiology Imaging: Impressions Chest CTA 06/08/18 13:12 CONCLUSION: 1. This study is negative for pulmonary embolism. 2. Scattered groundglass infiltrates are noted bilaterally consistent with atelectasis, mild infiltrates and/or mild pulmonary vascular congestion. Clinical correlation is recommended. 3. Cardiomegaly. Chest X-Ray 06/08/18 13:12 CONCLUSION: Prominence in interstitium at the bases which could be secondary to some underlying interstitial disease. Assessment and Plan - Assessment (1) Non-ST elevation CO (NSTEMI) Code(s): I21.4 - Non-ST elevation (NSTEMI) myocardial infarction Status: Acute (2) CHF (congestive heart failure) Code(s): I50.9 - Heart failure, unspecified Status: Acute (3) GERD (gastroesophageal reflux disease) Code(s): K21.9 - Gastro-esophageal reflux disease without esophagitis Status: Acute (4) High cholesterol Code(s): E78.00 - Pure hypercholesterolemia, unspecified Status: Chronic - Plan 88 years old lady, with new onset CHF, and non STEMI 1. non STEMI LHC 06/09/18 showed proximal LAD 90% stenosis, stented with a NATIVIDAD Rashid 2.75x30 mm. patent LM, Cx, RCA. LVEF 40% Will be discharged on Aspirin 81 mg daily, Brilinta 90 mg BID, continue Lipitor I gave her one-month supply of Brilinta. Planning DC today\ 2. new onset CHF. LVEF 40% Will continue Metoprolol, will add Losartan. continue Lasix. Echo ordered, if not done, can be done in outpatient setting. 3. Dyslipidemia. Continue atorvastatin. (2) CHF (congestive heart failure) Qualifiers: Heart failure type: unspecified Heart failure chronicity: acute Qualified Code(s): I50.9 - Heart failure, unspecified
[2018-06-10] MEDS ORDERED: Metoprolol Tartrate 25 MG Tablet PO ONE (18:00)
== END 2018-06-10 16:20 | disposition home or self-care (01) ==
LOC: PHED 12:53 → PHEDA 15:45 → HCIS 21:54
PROVIDERS: ADMIT Hospitalist; ATTEND Hospitalist
DX: E78.00 Pure hypercholesterolemia, unspecified; I25.10 Atherosclerotic heart disease of native coronary artery without angina pectoris; E78.5 Hyperlipidemia, unspecified; Z79.83 Long term (current) use of bisphosphonates; Z82.49 Family history of ischemic heart disease and other diseases of the circulatory system; I49.3 Ventricular premature depolarization; Z82.3 Family history of stroke; Z90.49 Acquired absence of other specified parts of digestive tract; Z96.659 Presence of unspecified artificial knee joint; I11.0 Hypertensive heart disease with heart failure; I50.20 Unspecified systolic (congestive) heart failure; Z92.3 Personal history of irradiation; F32.9 Major depressive disorder, single episode, unspecified; Z79.899 Other long term (current) drug therapy; K21.9 Gastro-esophageal reflux disease without esophagitis; Z88.8 Allergy status to other drugs, medicaments and biological substances; I21.4 Non-ST elevation (NSTEMI) myocardial infarction; Z85.3 Personal history of malignant neoplasm of breast